=== PATIENT | female | born 1970 | race Caucasian/White ===

== ENCOUNTER 2018-12-01 11:10 | Outpatient (REF) | payer BC, SELFPAY ==
--- NOTE | 2018-12-01 09:30 | PAPFT_PTH ---
PATIENT: Maria Del Carmen Collins LOC: [facility] U#:[id number] AGE/SX: 48/F ROOM: RE12/01/[address]: Anu Nguyễn : 1970 BED: DIS: 12/01/2018 SPEC #: [id number] RECD: 12/01/18 12:57 STATUS: STEVE JAMES #: [id number] GABBIE: 12/01/18 09:[address]: Anu Nguyễn DEPT: [facility] Cytology RECD BY: Brittni Cook Tissues: 1 - CX/ENDOCX FOR PAP SMEARS Procedures: PAP THIN PREP/UVM Screening HPV DNA PROBE Comments: [id number]
[2018-12-01 19:50] LABS: TSH (W/Ref FT4) 4.14 uIU/mL (0.358-3.74)
[2018-12-01 20:59] LABS: FREE T4 1.11 ng/dL (0.76-1.46)
== END 2018-12-01 11:30 ==
LOC: NCHCN 11:10
PROVIDERS: PCP Nurse Practitioner Family; Visit Provider Nurse Practitioner Family
DX: Z00.00 Encounter for general adult medical examination without abnormal findings (principal); R94.6 Abnormal results of thyroid function studies; Z12.4 Encounter for screening for malignant neoplasm of cervix; Z11.51 Encounter for screening for human papillomavirus (HPV)
CPT/HCPCS: 88142; 84439; 84443; 87624

== ENCOUNTER 2018-12-20 10:33 | Emergency (ER) | payer BC, SELFPAY ==
--- NOTE | 2018-12-20 10:39 | NUR.NOTE ---
pt has a history of ehler-danlos type 3 pt states that she was sitting croslegged last night and when she uncrossed her legs shooting, soabing pain developed in her left leg resulting in lack of mobility pt unable to bend leg past 35degrees pt has taken 600 mg ibuprofen at 1000
[2018-12-20 10:42] VITALS: BP 111/62; PULSE 74; RESP 16; TEMP 37; O2SAT 100
--- NOTE | 2018-12-23 13:42 | ED.GENADUL_ITS ---
Discharge Plan Disposition Patient Disposition: HOME Condition: Stable Discharge Details Chief Complaint: Orthopedic Clinical Impression: Knee pain Primary Care Provider: Anu Nguyễn ED Provider: Patty Marin Home Meds and New Rx's Prescriptions: New cyclobenzaprine 10 mg tablet 10 mg PO TID PRN (Reason: muscle spasm) Qty: 9 RF: 0 Continued fluoxetine [Prozac] 20 MG capsule 20 mg PO DAILY RF: 0 ibuprofen 800 mg Tablet 800 mg PO PRN PRNRF: 0 Discharge Instructions Instructions: Cyclobenzaprine (By mouth), Knee Pain (ED) Additional Instructions: Please return immediately to the emergency department if you develop any new or worsening symptoms or if you become otherwise concerned. It is extremely important that you make an appointment to be seen by your primary care doctor soon as possible in follow-up for this visit. Referrals: Anu Nguyễn [Primary Care Provider] - Discharge Data Discharge Date/Time-TO BE ENTERED AT DEPARTURE: 12/20/18 12:32 Medical Decision Making Maria Del Carmen Collins is a 48-year-old woman with history of Katie-Danlos syndrome presenting to the emergency department complaining of left-sided knee pain after extending her knee from a crosslegged position last night. On exam patient is very well and nontoxic appearing. She has no tenderness of the knee or lower leg. Flexion is somewhat limited secondary to pain. The left leg is neurovascularly intact. I have a low suspicion for pathologic fracture or other bony abnormality at this time. I did discuss x-rays for ruling out these etiologies with the patient, who declines x-rays at this time. Unclear etiology of patient's pain. Mechanism of injury not consistent with significant acute ligamentous or meniscal injury. Exam/hx not c/w ENT, cellulitis/myositis/other infectious process, other acute emergent life/limb threatening etiology. Given chronicity and recurrence of patient complaint, suspect other soft tissue cause. Patient reports that she has knee immobilizer at home, but would like to try crutches. Plan for crutches, weightbearing as tolerated, ibuprofen/Tylenol for pain, outpatient follow-up with PCP. I had a lengthy discussion with the patient regarding return to emergency department precautions, home care, importance of outpatient follow-up. Patient verbalized understanding of the plan and is amenable. Medical Records Medical records reviewed: Yes I reviewed the patient's medical records. HPI General Mode of arrival: ambulatory . Date/Time Provider Initiated Documentation: 12/20/18 10:51 . Limitations to Documentation: no limitations . Information obtained by: patient, RN notes reviewed and old records reviewed . HPI Narrative: Maria Del Carmen Collins is a 8-year-old woman with history of Katie-Danlos syndrome and anxiety presenting to the emergency department with knee pain. Patient reports that last night she was sitting crosslegged good, and when she went on cross her leg she had sudden onset pain in her left knee radiating in to her left lower leg. Patient reports that this is happened to her many times in the past, however pain usually subsides after a few hours or overnight. Patient assumed pain would improve as it typically does, however when she woke up this morning pain still present. She reports it is somewhat better from onset. Patient reports that she has stabbing pain in the distal anterior thigh that radiates into the mid anterior lower leg. This pain is typical of her prior episodes. Patient reports that pain is worse with flexion. She reports that she has had no recent illnesses, feels otherwise in her usual state of health. No other injuries or trauma. She denies any other pain, weakness of the extremities, numbness/tingling, skin rash, nausea/vomiting/diarrhea. Related Data Home Medications Medication Instructions Recorded Confirmed fluoxetine [Prozac] 20 mg PO DAILY 08/25/13 12/20/18 cyclobenzaprine 10 mg PO TID PRN #9 tab 12/20/18 ibuprofen 800 mg PO PRN PRN 12/20/18 12/20/18 Previous Rx's Medication Instructions Recorded cyclobenzaprine 10 mg PO TID PRN #9 tab 12/20/18 Allergies Allergy/AdvReac Type Severity Reaction Status Date / Time No Known Allergies Allergy Unverified 12/20/18 10:44 General Stated Complaint: Orthopedic ABENA: 3 Review of Systems Review of Systems Constitutional: denies fevers Eyes: denies eye pain ENT: denies facial pain, dental pain, sore throat Cardiovascular: denies chest pain Respiratory: denies SOB, cough GI: denies abdominal pain, vomiting, diarrhea : denies flank pain MSK: denies back pain, neck pain, myalgias, reports left knee pain Skin: denies rash, wound Neuro: denies headaches, numbness, weakness PFSH Social History Smoking/Tobacco Use Status: Never Exam Narrative Exam Narrative: Constitutional: well and [id number], pleasant, conversing normally HENT: head atraumatic, normocephalic normal inspection, mucous membranes moist Eyes: conjunctiva normal, sclera normal, pupils 3mm b/l Neck: no stridor, normal ROM, trachea midline Resp: normal work of breathing, LCTAB Cardio: normal rate, normal rhythm, no murmur appreciated Skin: warm, dry, normal color, no rash Neuro: alert, not altered, grossly non-focal, normal tone. Normal gait. Ext: Left knee nontender to palpation posteriorly, anteriorly over patella, distal femur, proximal tibia, medial or lateral joint space. No pain with varus or valgus stress. DP pulses intact and symmetric. No tenderness in the tibia or fibula. Patient extends fully without pain, flexion limited to approximately 70-80 degrees secondary to pain. Normal sensation of the left leg. No knee effusion or skin changes. No edema of the lower leg. Psych: normal mood, normal affect, normal behavior Course Vital Signs Temperature 37 C 12/20/18 10:42 Pulse 74 12/20/18 10:42 Respiratory Rate 16 12/20/18 10:42 Blood Pressure 111/62 12/20/18 10:42 Pulse Oximetry 100 12/20/18 10:42 Temperature 37 C 12/20/18 10:42 Temperature Source Skin 12/20/18 10:42 Pulse 74 12/20/18 10:42 Respiratory Rate 16 12/20/18 10:42 Respiratory Effort 12/20/18 10:45 Blood Pressure 111/62 12/20/18 10:42 Blood Pressure Position Sitting 12/20/18 10:42 Pulse Oximetry 100 12/20/18 10:42 Oxygen Delivery Method Room Air 12/20/18 10:42 Oxygen Flow Rate 0 12/20/18 10:42 Pain Level 7 12/20/18 10:42 Comment 12/20/18 10:42
== END 2018-12-20 12:32 | disposition home or self-care (01) ==
PROVIDERS: Emergency Provider Student in an Organized Health Care Education/Training Program; PCP Nurse Practitioner Family
DX: M25.562 Pain in left knee (principal); Q79.6 Ehlers-Danlos syndromes
CPT/HCPCS: 99283; E0114

== ENCOUNTER 2019-07-26 18:36 | Emergency (ER) | payer BC, SELFPAY ==
[2019-07-26 18:45] VITALS: BP 152/88; PULSE 77; RESP 16; TEMP 36.4; O2SAT 99
--- NOTE | 2019-07-26 19:43 | ED.GENADUL_ITS ---
Discharge Plan Disposition Patient Disposition: HOME Condition: Improving Discharge Details Chief Complaint: Nk/Back Pain Clinical Impression: Acute torticollis Primary Care Provider: Anu Nguyễn ED Provider: Felisa Manzo Home Meds and New Rx's Prescriptions: New cyclobenzaprine 10 mg tablet 10 mg PO TID PRN (Reason: spasm) Qty: 14 RF: 0 Continued ibuprofen 800 mg Tablet 800 mg PO PRN PRNRF: 0 Discharge Instructions Instructions: Spasmodic Torticollis (ED) Additional Instructions: Ice or heat to the neck for discomfort. Use soft collar for comfort. Use muscle relaxant as prescribed. Do not drive, drink, work while taking this medication. Rest activities as tolerated. Next and follow-up promptly with your primary care doctor if not improving the next 2 to 3 days Return for any worsening or concerns sooner if needed Medical Decision Making Patient presents with complaints of left neck pain. Patient awoke with pain for the last 3 to 4 days. Patient reports the left side of the neck is moderately painful. Patient presents in a position of torticollis however on exam has obvious swelling and fullness to the left lateral aspect of the neck below the angle of the jaw. Will CT scan to identify etiology of swelling. Patient offered offer med and Toradol for pain relief as she is obviously uncomfortable. Patient did take ibuprofen early in the day but has not had any recent NSAID in the last 8 hours. Patient is not clinically ill appearing has no complaints of fevers or chills. No other concerns or complaints. Denies headache. No radiation of pain into the left arm. Patient's CAT scan ultimately unremarkable for any acute abnormality. We will provide benzo for muscle spasm and a soft collar. Patient reports her understanding. Conservative treatments discussed. Encouraged follow-up with primary care doctor if not improving. HPI General Date/Time Provider Initiated Documentation: 07/26/19 18:42 . HPI Narrative: Patient presents for complaints of left-sided neck pain. Patient reports she awoke 4 days ago with left-sided neck discomfort. Patient reports pain with range of motion of her neck. Patient reports mild pain radiating from the lateral side of her neck down to her shoulder. No pain radiating into the arm. Patient reports pain with rotation. Patient also reports pain with raising left arm. Patient denies fever, chills, nausea, vomiting. No ill feeling. Denies headache or dizziness. Patient reports he has had neck spasm in the past but typically will resolve within a few days. Patient reports this does seem similar but is longer lasting. Patient denies difficulty swallowing or eating. No chest pain, difficulty breathing or shortness of breath. No other concerns or complaints. Patient does report mild fullness to the left side of her neck. Related Data Home Medications Medication Instructions Recorded Confirmed ibuprofen 800 mg PO PRN PRN 12/20/18 07/26/19 cyclobenzaprine 10 mg PO TID PRN #14 tab 07/26/19 Previous Rx's Medication Instructions Recorded cyclobenzaprine 10 mg PO TID PRN #14 tab 07/26/19 Allergies Allergy/AdvReac Type Severity Reaction Status Date / Time No Known Allergies Allergy Unverified 07/26/19 18:48 General Stated Complaint: Nk/Back Pain ABENA: 4 Review of Systems Review of Systems CONSTITUTIONAL: The patient denies fevers, chills. EYES: Denies vision changes, blurry vision, or eye pain. ENT: Denies hearing changes, tinnitus, vertigo, sore throat. CARDIAC: Denies chest pain, SOB. RESPIRATORY: Denies cough, sputum. Denies difficulty breathing. GASTROINTESTINAL: Denies abdominal pain, changes in bowel, vomiting or nausea. GENITOURINARY: Denies dysuria, or frequency of urination. MUSCULOSKELETAL: Denies Joint pain, gait changes. NEUROLOGIC: Denies headaches, Denies focal weakness. Denies numbness. INTEGUMENT: Denies rashes. PSYCHIATRIC: Denies behavior changes. Denies anxiety or depression. ENDOCRINOLOGY: Denies fatigue. PSYCHIATRY: Denies depression, agitation or anxiety [facility] Social History Smoking/Tobacco Use Status: Never Drug use: Never Do you feel safe in your relationship?: Yes Exam Narrative Exam Narrative: CONST: Healthy appearing patient, in no acute distress. Well hydrated. Alert and alert. HENMT: Head nomocephalic, normal to inspection. Atraumatic. Hearing grossly normal. EYES: General normal appearance. Alignment normal. Eyelids normal. Conjunctiva normal. NECK: Normal visual inspection. Trachea midline. No Midline tenderness. Patient's position of comfort is tilted toward the right. Patient with pain with rotational range of motion. Patient with fullness and swelling noted to the left lateral neck below the angle of the jaw. Patient also has muscular tenderness through the lateral aspect of the neck. No skin change. CHEST: Normal insepection of the chest. RESP: Normal respiratory effort. Speaking full sentences. No cough. No audible wheezing. No retractions. CARDIO: No JVD. MUSCULOSKELETAL: Normal Gait. FROM of all extremities. SKIN: Normal. Dry. No rashes. NEURO: Alert and awake. Speech clear. PSYCH: Normal affect. Cooperative. Course Vital Signs Temperature 36.4 C L 07/26/19 18:45 Pulse 77 07/26/19 18:45 Respiratory Rate 16 07/26/19 18:45 Blood Pressure 152/88 H 07/26/19 18:45 Pulse Oximetry 99 07/26/19 18:45 Temperature 36.4 C L 07/26/19 18:45 Temperature Source Skin 07/26/19 18:45 Pulse 77 07/26/19 18:45 Respiratory Rate 16 07/26/19 18:45 Respiratory Effort Non-Labored 07/26/19 18:45 Blood Pressure 152/88 H 07/26/19 18:45 Blood Pressure Position Sitting 07/26/19 18:45 Pulse Oximetry 99 07/26/19 18:45 Oxygen Delivery Method Room Air 07/26/19 18:45 Oxygen Flow Rate 0 07/26/19 18:45 Pain Level 4 07/26/19 18:45
[2019-07-26 20:47] LABS: Abs Immature Grans 0.02 k/cumm (0.0-0.09); Absolute Basophil Count 0.03 k/cumm (0.0-0.2); Absolute Eosinophil Count 0.24 k/cumm (0.0-0.7); Absolute Lymphocyte Count 3.68 k/cumm (1.2-3.4); Absolute Monocyte Count 0.74 k/cumm (0.11-0.7); Absolute Neutrophil Count 4.96 k/cumm (1.2-6.7); Basophils % 0.3; Eosinophils % 2.5; HGB 14.3 g/dL (12.0-15.5); Immature Grans % 0.2; Lymphocytes % 38.1; Mean Corpuscular Hemoglobin 29.7 pg (27.0-33.0); Mean Corpuscular Volume 87.3 fL (80-95); Mean Platelet Volume 10.1 fL (8.0-11.0); Monocytes % 7.7; Neutrophils % 51.2; Platelet Count 313 x1000/uL (130-400); RBC 4.81 m/cumm (4.00-5.20); RBC Distribution Width 12.8 % (11.7-14.6); White Blood Cell Count 9.67 k/cumm (4.4-10.8)
[2019-07-26 21:00] LABS: ALT 27 U/L (14-59); AST 15 U/L (15-37); Alkaline Phosphatase 85 U/L (46-116); Anion Gap 8.5 mmol/L (3-11); BUN 15 mg/dL (7-18); Bilirubin, Total 0.3 mg/dL (0.2-1.0); CO2 28.5 mmol/L (21.0-32.0); CREATININE 0.98 mg/dL (0.55-1.02); Calcium 9.2 mg/dL (8.5-10.1); Chloride 105 mmol/L (98-107); Glucose 109 mg/dL (70-100); Potassium 3.7 mmol/L (3.5-5.1); Sodium 142 mmol/L (136-145); Total Protein 7.9 g/dL (6.4-8.2)
[2019-07-26] MEDS: Ketorolac 15 MG/ML VIAL IVP (21:22)
[2019-07-26] MEDS: Omnipaque 350 MG/ML 100 ML BTL IJ (21:22)
[2019-07-26] MEDS: Acetaminophen 500 MG TAB 1000 MG PO (21:22)
--- NOTE | 2019-07-26 21:22 | DI.CT_ITS ---
SYMPTOM/DIAGNOSIS: NECK SWELLING, LEFT LATERAL, IDENTIFY CT SOFT TISSUE NECK: 07/[address]: CT examination of the cervicothoracic junction was performed using intravenous infusion of 100 cc's of Omnipaque 350. The trachea and esophagus are normal in appearance. The vascular structures of the neck and superior mediastinum appear intact. The thyroid appears normal. There is no evidence of a supraclavicular or substernal mass. The lung apices appear normal. The clavicles and visualized portions of the shoulder girdle appear normal bilaterally. CONCLUSION: Normal CT examination of the cervical region.
[2019-07-26] MEDS: Normal Saline 1,000 ML 1000 ML IV (21:23)
[2019-07-26] MEDS: Normal Saline Flush 10 ML SYR IVP (21:23)
--- NOTE | 2019-07-26 21:38 | DI.VRAD_ITS ---
EXAM: CT Neck With Contrast EXAM DATE/TIME: 07/26/2019 7:42 PM CLINICAL HISTORY: 49 years old, female; Mass, lump, or swelling in neck; Patient HX: Left sided neck pain with movement and swelling TECHNIQUE: Imaging protocol: Computed tomography images of the neck with intravenous contrast. Radiation optimization: All CT scans at this facility use at least one of these dose optimization techniques: automated exposure control; mA and/or kV adjustment per patient size (includes targeted exams where dose is matched to clinical indication); or iterative reconstruction. Contrast material: OMNIPAQUE 350; Contrast volume: 100 ml; Contrast route: IOV; COMPARISON: No relevant prior studies available. FINDINGS: Nasopharynx: Unremarkable. Oropharynx: Unremarkable. No significant tonsillar enlargement. Hypopharynx: Unremarkable Larynx: Unremarkable. Normal epiglottis. Retropharyngeal space: Unremarkable. Submandibular/Parotid glands: Normal. Glands are normal in size. Thyroid: Normal. No enlarged or calcified nodules. Lymph nodes: Unremarkable. No lymphadenopathy. Trachea: Visualized trachea is unremarkable. Lungs: Unremarkable as visualized. Bones/joints: Unremarkable. No acute fracture. Soft tissues: Unremarkable. No significant soft tissue swelling. IMPRESSION: No acute findings. Dictated and Authenticated by: Nghia Campos MD. Ordering:AMADOR Roberto MD
[2019-07-26] MEDS: Cyclobenzaprine 10 MG TAB (22:12)
== END 2019-07-26 22:25 | disposition home or self-care (01) ==
PROVIDERS: Emergency Provider Physician Assistant; PCP Nurse Practitioner Family
DX: M43.6 Torticollis (principal)
CPT/HCPCS: 36415; 70491; 80053; 96361; 96374; 99285; 85025; 99284; J1885; J3490; L0120

== ENCOUNTER 2019-12-03 10:32 | Outpatient (REF) | payer BC, SELFPAY ==
--- NOTE | 2019-12-02 09:45 | PAPFT_PTH ---
PATIENT: Maria Del Carmen Collins LOC: [facility] U#:[id number] AGE/SX: 49/F ROOM: RE12/03/[address]: Anu Nguyễn : 1970 BED: DIS: 12/03/2019 SPEC #: [id number] RECD: 12/03/19 13:01 STATUS: STEVE JAMES #: [id number] GABBIE: 12/02/19 09:[address]: Anu Nguyễn DEPT: [facility] Cytology RECD BY: Brittni Cook Tissues: 1 - CX/ENDOCX FOR PAP SMEARS Procedures: PAP THIN PREP/UVM Screening HPV DNA PROBE Comments: [id number]
[2019-12-03 18:33] LABS: TSH (W/Ref FT4) 2.87 uIU/mL (0.36-3.74)
== END 2019-12-03 10:52 ==
LOC: NCHCN 10:32
PROVIDERS: PCP Nurse Practitioner Family; Visit Provider Nurse Practitioner Family
DX: Z00.00 Encounter for general adult medical examination without abnormal findings (principal); R94.6 Abnormal results of thyroid function studies; Z12.4 Encounter for screening for malignant neoplasm of cervix; Z11.51 Encounter for screening for human papillomavirus (HPV)
CPT/HCPCS: 88142; 84443; 87624

== ENCOUNTER 2020-03-14 12:14 | Outpatient (REF) | payer BC, SELFPAY ==
[2020-03-16 09:10] LABS: COVID-19 RT-PCR UVMMC Result Negative (Negative)
== END 2020-03-14 12:34 ==
LOC: NCHCN 12:14
PROVIDERS: PCP Nurse Practitioner Family; Visit Provider Nurse Practitioner Family
DX: Z11.59 Encounter for screening for other viral diseases (principal)
CPT/HCPCS: U0003

== ENCOUNTER 2020-07-18 07:41 | Outpatient (CLI) | payer BC, SELFPAY ==
[2020-07-21 12:35] LABS: Patient Race White; SARS-CoV-2 Specimen Source Nasopharynx
[2020-07-21 12:36] LABS: Method Summary See Comments; SARS-CoV-2 RNA Undetected (Undetected)
== END 2020-07-18 08:01 ==
PROVIDERS: PCP Nurse Practitioner Family; Visit Provider Nurse Practitioner Family
DX: Z20.828 Contact with and (suspected) exposure to other viral communicable diseases (principal)
CPT/HCPCS: U0003

== ENCOUNTER 2021-02-01 01:04 | Outpatient (CLI) | payer BC, SELFPAY ==
--- NOTE | 2021-02-01 | DI.DEXA_ITS ---
EXAM: XR DEXA BONE DENSITY W/WO RITA CLINICAL HISTORY: OSTEOPOROSIS, M81.0 TECHNIQUE: Routine DEXA evaluation of the lumbar spine, hip, or forearm. COMPARISON: Prior study July 2014 FINDINGS: Performed on a [employer] unit. Lateral image: No compression fracture evident. Lumbar Spine total T-score: 1.8. This is identical to the T-score of 2014. Hip total T-score:0.8. Prior 2013 reading was -3.4. T-score reading today at level of femoral neck is 1.1 Forearm total T-score: 0.8 IMPRESSION: Bone mineral density measures in the normal range. Fracture risk is low. Note: Any spine fracture indicates 5x risk for subsequent spine fracture and 2x risk for subsequent h ip fracture. World Health Organization criteria for BMD interpretation classify patients: Normal...... T- Score at or above -1.0 Osteopenic... T- Score between -1.0 and -2.5 Osteoporosis... T-Score at or below -2.5
== END 2021-02-01 01:24 ==
PROVIDERS: PCP Nurse Practitioner Family; Visit Provider Nurse Practitioner Family
DX: M81.0 Age-related osteoporosis without current pathological fracture (principal); M85.89 Other specified disorders of bone density and structure, multiple sites
CPT/HCPCS: 77080

== ENCOUNTER 2021-12-05 01:02 | Outpatient (CLI) | payer BC, SELFPAY ==
--- NOTE | 2021-12-05 12:43 | DI.MAMMO_ITS ---
Exam(s) MAMMO SCREENING EXAM: MAMMO SCREENING CLINICAL HISTORY: SCREENING FOR BREAST CANCER Z12.39. TECHNIQUE: Bilateral full field digital CC and MLO mammographic images were obtained with 3D tomosyn thesis and utilizing computer aided detection (CAD). COMPARISON: None. This is a baseline mammogram on this 51-year-old patient. FINDINGS: There are no significant radiographic findings in the right breast. In the left breast there is an asymmetric density located inferomedially, approximately 7 cm in from the nipple. Spot compression views recommended. No malignant-appearing microcalcification groups is region or elsewhere in either breast There is no significant architectural distortion nor skin thickening-retraction. IMPRESSION: 1. No radiographic evidence of malignancy in the right breast. 2. Asymmetric density-possible nodule medially in the left breast, as described above. Spot dick elham views and ultrasound recommended.. BI-RADS Category 0 - Assessment Incomplete: Need additional imaging evaluation Breast Density - Category B - Scattered areas of fibroglandular density Breast density Category C or D implies that the patient has dense breast tissue. Dense breast tissue can make it harder to find cancer on a mammogram. Dense breast tissue is also associated with an incr eased risk of breast cancer. This information about the result of the mammogram report was provided to the patient to raise their awareness. Use this report when you speak with the patient about their risks for breast cancer, which includes their family history. At that time, you may recommend additional screening tests (Ultrasoun d or MRI) as these tests may add significant information. A negative radiographic report should not delay biopsy if a dominant or clinically suspicious mass is present. Up to ten percent of cancers are not identified on mammography. A negative report may reinforce clinical impression. Adenosis and dense breasts may obscure an underlying neoplasm. False positive reports average 6 to 10%. Patient will receive a letter notifying them of these results.
== END 2021-12-05 01:22 ==
PROVIDERS: PCP Nurse Practitioner Family; Visit Provider Nurse Practitioner Family
DX: Z12.31 Encounter for screening mammogram for malignant neoplasm of breast (principal); R92.8 Other abnormal and inconclusive findings on diagnostic imaging of breast
CPT/HCPCS: 77063; 77067

== ENCOUNTER 2021-12-08 14:46 | Outpatient (REF) | payer BC, SELFPAY ==
[2021-12-08 15:41] LABS: HCT 44.1 % (36.0-46.0); HGB 14.1 g/dL (11.2-15.7); MCH 29.3 pg (27.0-33.0); MCV 91.7 fL (80-95); Platelet Count 274 10^3/uL (130-400); RBC 4.81 10^6/uL (3.93-5.22); RDW 12.4 % (11.7-14.6); WBC 5.65 10^3/uL (4.4-10.8)
[2021-12-08 16:26] LABS: Anion Gap 10.4 mmol/L (3-11); BUN 28 mg/dL (7-18); CO2 26.6 mmol/L (21.0-32.0); CREATININE 0.8 mg/dL (0.55-1.02); Calcium 9.3 mg/dL (8.5-10.1); Calculated LDL 133 mg/dL (<100); Chloride 106 mmol/L (98-107); Cholesterol 199 mg/dL (<200); Glucose 96 mg/dL (74-106); HDL Cholesterol 55 mg/dL (40-60); Potassium 4.1 mmol/L (3.5-5.1); Sodium 143 mmol/L (136-145); TSH (W/Ref FT4) 3.69 uIU/mL (0.36-3.74); Triglyceride 57 mg/dL (<150)
== END 2021-12-08 14:47 | disposition home or self-care (01) ==
LOC: NCHCN 14:46
PROVIDERS: PCP Nurse Practitioner Family; Visit Provider Nurse Practitioner Family
DX: R94.6 Abnormal results of thyroid function studies (principal); Z00.00 Encounter for general adult medical examination without abnormal findings
CPT/HCPCS: 80048; 80061; 85027; 84443

== ENCOUNTER 2021-12-15 02:02 | Outpatient (CLI) | payer BC, SELFPAY ==
--- NOTE | 2021-12-15 | DI.US_ITS ---
Exam(s) MG MAMMO SCREEN CALL BACK UNI US BREAST LT LIMITED EXAM: MG MAMMO SCREEN CALL BACK UNI and U/S breast LT limited CLINICAL HISTORY: ASYMMETRIC DENSITY LT BREAST. TECHNIQUE: Craniocaudal and mediolateral oblique Full Field Digital Mammography views of the left br east with Computer Aided Diagnosis followed by Tomosynthesis and left breast ultrasound. COMPARISON: Priors available for comparison. FINDINGS: Mammography/Tomosynthesis: Masses/Architectural Distortion: None seen. Microcalcifictions: No suspicious pleomorphic-type are seen. Skin Thickening/Nipple Retraction: None. Left breast US: Echotexture: Normal appearance of the glandular tissue. Shadowing: No suspicious foci. Cyst: None. Solid lesions: None seen. Ductal dilation: None. IMPRESSION: 1. No evidence of malignancy is noted. 2. A six-month follow-up left mammogram is recommended for re-evaluation. 3. The findings were discussed with the patient on the date of the examination. BI-RADS Category 3 - 6 month - Probably Benign Finding: Recommend follow-up imaging in 6 months Breast Density - Category B - Scattered areas of fibroglandular density Breast density Category C or D implies that the patient has dense breast tissue. Dense breast tissue can make it harder to find cancer on a mammogram. Dense breast tissue is also associated with an incr eased risk of breast cancer. This information about the result of the mammogram report was provided to the patient to raise their awareness. Use this report when you speak with the patient about their risks for breast cancer, which includes their family history. At that time, you may recommend additional screening tests (Ultrasoun d or MRI) as these tests may add significant information. A negative radiographic report should not delay biopsy if a dominant or clinically suspicious mass is present. Up to ten percent of cancers are not identified on mammography. A negative report may reinforce clinical impression. Adenosis and dense breasts may obscure an underlying neoplasm. False positive reports average 6 to 10%. Patient will receive a letter notifying them of these results.
== END 2021-12-15 02:22 ==
PROVIDERS: PCP Nurse Practitioner Family; Visit Provider Nurse Practitioner Family
DX: Z12.31 Encounter for screening mammogram for malignant neoplasm of breast (principal); R92.8 Other abnormal and inconclusive findings on diagnostic imaging of breast; N64.59 Other signs and symptoms in breast
CPT/HCPCS: 76642; 77063; 77067

== ENCOUNTER → 2022-06-14 02:31 | Outpatient (CLI) | payer BC, SELFPAY ==
--- NOTE | 2022-06-14 09:34 | DI.MAMMO_ITS ---
Exam(s) MG MAMMO DIAGNOSTIC UNI EXAM: MAMMO DIAGNOSTIC UNI CLINICAL HISTORY: HX OF DUSTY MAMMO, Z87.898. TECHNIQUE: Craniocaudal and mediolateral oblique Full Field Digital Mammography views of the left br east with Computer Aided Diagnosis followed by Tomosynthesis. COMPARISON: Comparison is made with prior examinations. FINDINGS: Mammography/Tomosynthesis: Masses/Architectural Distortion: None seen. Microcalcifictions: No suspicious pleomorphic-type are seen. Skin Thickening/Nipple Retraction: None. IMPRESSION: 1. No evidence of malignancy is noted. 2. Unless there is more urgent need, follow-up screening mammography is recommended, as per [place] [employer] guidelines. 3. The findings were discussed with the patient on the date of the examination. BI-RADS Category 1 - Negative Breast Density - Category B - Scattered areas of fibroglandular density Breast density Category C or D implies that the patient has dense breast tissue. Dense breast tissue can make it harder to find cancer on a mammogram. Dense breast tissue is also associated with an incr eased risk of breast cancer. This information about the result of the mammogram report was provided to the patient to raise their awareness. Use this report when you speak with the patient about their risks for breast cancer, which includes their family history. At that time, you may recommend additional screening tests (Ultrasoun d or MRI) as these tests may add significant information. A negative radiographic report should not delay biopsy if a dominant or clinically suspicious mass is present. Up to ten percent of cancers are not identified on mammography. A negative report may reinforce clinical impression. Adenosis and dense breasts may obscure an underlying neoplasm. False positive reports average 6 to 10%. Patient will receive a letter notifying them of these results.
== END ==
PROVIDERS: PCP Nurse Practitioner Family; Visit Provider Nurse Practitioner Family
DX: Z87.898 Personal history of other specified conditions (principal)
CPT/HCPCS: 77061; 77065; G0279

== ENCOUNTER 2022-06-19 12:45 | Day surgery (SDC) | payer BC, SELFPAY ==
--- NOTE | 2022-06-18 22:20 | HPE_ITS ---
Assessment and Plan Assessment and plan (1) Screening for colon cancer: Status: Acute Assessment and plan: see HPI (2) Anxiety: (3) Arthralgia: (4) Katie-Danlos disease: (5) Elevated TSH: (6) Female stress incontinence: History of Present Illness Narrative: Patient is here today for colon cancer screening. She did complete prep. The resulting effluent is a clear yellow color. She is not having any abdominal pain or nausea currently. She currently has no chest pain or chest discomfort, nausea, shortness of breath, productive cough of, fever or chills. She has had no changes in her medications or health status since she saw Evonne in the office. We discussed what she could expect during the procedure post procedurally recovery time and risks including but not limited to: Bleeding, infection, perforation, complications from the anesthesia. All questions are answered and patient is stable for the proposed procedure. Consult 05/03: 2 y/o female with history of Katie-Danlos disease, hypermobility and anxiety presents for her first colonoscopy screening pre-op. She denies a family history of colon cancer. She denies any changes in bowel habits including bloody or black tarry stools, abdominal pain, diarrhea or constipation. She denies constitutional symptoms. Denies use of any other recreational or illegal drugs. She denies chest pain, palpitations, dyspnea or dyspnea with exertion.? She describes being physically active walking frequently and participates in physical therapy once a week.? She denies prior history or family history of adverse reactions or complications with anesthesia. The patient denies any history of stroke, SC, seizures, bleeding or clotting disorders. She denies having any implanted metal in her body. Review of Systems All systems reviewed & are unremarkable except as noted in HPI and below PFSH All Active Problems Screening for colon cancer (Acute) Medical History Anxiety Arthralgia BMI 34.0-34.9,adult Depression Katie-Danlos disease Elevated TSH Female stress incontinence Osteoporosis Pes planus Surgical History (Updated 06/19/22 @ 13:11 by Ashli Hernandez RN) Hx of adenoidectomy Social History Smoking/Tobacco Use Status: Never Smoking risk assessment performed?: Yes Alcohol Intake: current Alcohol Intake frequency: a few times a month Drug use: Rarely Substance use type: marijuana Do you feel safe at home: Yes Do you feel safe in your relationship?: Yes Meds Allergies and Home Medications Allergies Allergy/AdvReac Type Severity Reaction Status Date / Time No Known Allergies Allergy Unverified 06/19/22 13:11 Home Medications Medication Instructions Recorded Confirmed Type ibuprofen 800 mg tablet 800 mg PO PRN PRN 12/20/18 06/19/22 History fluoxetine 10 mg capsule 10 mg PO DAILY 09/14/21 06/19/22 History Exam Narrative Exam Narrative: PHYSICAL EXAM GENERAL APPEARANCE: Alert, healthy appearance, oriented, in no acute distress SKIN: No rashes.? No breakdown HYDRATION: Well hydrated HEAD, EYES, EARS, NECK, THROAT: Head is normocephalic, pupils equal, round, reactive to light and accommodation, ocular movement intact, sclera clear and no jaundice. ?Dentition intact. No sore throat.? No jaw pain. No thrush NECK: Supple, Trachea midline. No JVD. LUNGS: normal respiration/nl chest excursion. ?Clear to auscultation B/l no R /R/W ?HEART: Regular rate and rhythm, EXTREMITY: No edema or cyanosis? no leg pain, redness, swelling.? No IV infiltration ABDOMEN: non tender to palpation, no masses or distention, no hernias. Normal bowel sounds NEURO: no focal neuro deficits.
--- NOTE | 2022-06-18 22:24 | W.COLOREPORT ---
Colonoscopy Report Date of procedure: 06/19/22 Pre-op diagnosis general: CRC screen Post-op diagnosis procedure note: other (Diverticula and polyps) Surgeon: Bertha Santiago Anesthesia Type: General:No Airway Disposition: PACU Prep: Miralax/Dulcolax Retraction Time: 11 Procedure Description: After informed consent was obtained the patient was taken to the procedure room and placed in a left decubitous position. Monitors were applied and a time out was done. The patients name, date of , procedure, allergies to medications and metal in their body was reviewed. The patient was then sedated. Once sedated and comfortable a rectal exam was done. External exam was normal. Internal exam revealed a normal sphincter tone and no palpable masses. The scope was then introduced and retrofelexed. No internal hemorrhoids were identified. The scope was then advanced to the cecum without difficulty. The TI and appendiceal orifice were identified. The prep was BB PS 3 in all segments for total of 9. The scope was then slowly retracted over 11 minutes back into the rectum. She has few scattered [place] diverticula throughout the entirety of the colon. They are not very numerous. There are no signs of active bleeding or infection. Mucosa is pink and healthy. She has a 5 mm flat polyp in the rectum. This is removed with a cold biting forcep. All specimen is retrieved and no bleeding is noted. the scope was removed and the patient was woken up and taken back to Same day surgery in stable condition. The patient tolerated the procedure well and there were no immediate complications. Follow up: The patient should follow up in 7 years unless they develop changes in bowel habits or other new gastrointestinal complaints. Patient was given information on diverticula and the importance of dietary fiber. She does experience some problems with constipation and irregularity. I did encourage her to start fiber supplements such as Metamucil. If she has any further questions or concerns she can follow-up in the office.
--- NOTE | 2022-06-18 22:26 | PDOC.DSDIS_ITS ---
Discharge Plan Disposition Patient Disposition: HOME Condition: Good Discharge Details Reason For Visit: colon scope Attending Provider: Bertha Santiago Primary Care Provider: Anu Nguyễn Home Meds and New Rx's Prescriptions: Continued fluoxetine 10 mg capsule 10 mg PO DAILY ibuprofen 800 mg Tablet 800 mg PO PRN PRN Discontinued bisacodyl [Dulcolax (bisacodyl)] 5 mg tablet,delayed release (DR/EC) 5 mg PO ONCE Qty: 4 0RF Rx Instructions: Take according to provider's instructions for colonoscopy prep. polyethylene glycol 3350 17 gram/dose powder 17 g PO ONCE Qty: 238 0RF Rx Instructions: To be taken as directed by prescriber's office for colonoscopy prep. Discharge Instructions Additional Instructions: DSU Colonoscopy Post- Op Instructions Instructions for Everyone who is given Anesthesia: For your safety, please do the following for the next twenty-four (24) hours: *Do Not operate a motor vehicle (car, truck, motorcycle, etc.) *Do Not drink alcoholic beverages or use any recreational drugs for the first 24 hours or while taking pain medications. The medications in your body may have a reaction that can be dangerous. *Do Not make any important decisions or sign any important papers. Findings: Diverticula- through out entire colon, minor Polyps x1 small Follow up: My office will send a letter in 2-3 wks detailing as to what type of polyp it was and when you should repeat your colonoscopy. 1. No lifting over 20 pounds or strenuous activity for the first 24 hours after your procedure. After 24 hours there are no restrictions on your activity but you may feel fatigued for a few days. 2. After you arrive home you may have a light meal and return to your normal diet as you can tolerate it without feeling sick to your stomach. 3. You may have a bloated, gaseous feeling in your belly (abdomen) after a colonoscopy. Passing gas and belching will help. Walking or lying down on your left side with your knees flexed may relieve the discomfort. Call the office at [phone] (Office) or [phone] (Hospital) right away if you notice any of the following: a.Vomiting of blood or ?coffee ground stools?. b.Rectal bleeding 1Tbsp, blood clots or continuous bleeding. c.Severe belly (abdominal) pain. d.A hard distended belly (abdomen) and an inability to pass gas. 4. Please don?t expect to have a normal BM (bowel movement) for 2-3 days after your procedure. 5. If there are questions regarding the findings of your procedure, please contact your doctor 6. If you are unable to contact your doctor with a problem, contact the hospital at [phone]. 7. Continue all your regular medications unless directed otherwise. I understand the above instructions and have no questions. Signature of Patient or Adult Escort Name of Responsible Adult Escort Signature of Nurse Date/Time Activity:: see above Diet:: see above Discharge Orders Discharge Orders: Discharge Order (Routine); Ordered 06/18/22 Ordered By: Bertha Santiago DS: Diagnosis Discharge Diagnosis (1) Screening for colon cancer: Status: Acute (2) Anxiety: (3) Arthralgia: (4) Katie-Danlos disease: (5) Elevated TSH: (6) Female stress incontinence: (7) Diverticula of colon: Status: Acute (8) Colon polyp: Status: Acute
[2022-06-19 13:13] VITALS: BP 145/96; PULSE 77; RESP 16; TEMP 36.2; O2SAT 98
--- NOTE | 2022-06-19 13:30 | W.ANESPRE ---
General Info Date of Service Date Performed: 06/19/22 Height: 5 ft 3 in Weight: 98.5 kg Body Mass Index (BMI): 38.5 Surgical Procedure: Operation Date: 06/19/22 14:20 Proposed Procedure Side Surgeon yudith Santiago, Meds Allergies and Home Medications Allergies Allergy/AdvReac Type Severity Reaction Status Date / Time No Known Allergies Allergy Unverified 06/19/22 13:11 Home Medication Medication Instructions Recorded ibuprofen 800 mg tablet 800 mg PO PRN PRN 12/20/18 fluoxetine 10 mg capsule 10 mg PO DAILY 09/14/21 Current Visit Medications: Current Medications Generic Name Dose Route Start Last Admin Trade Name Freq PRN Reason Stop Dose Admin Hyoscyamine Sulfate 0.125 mg 06/18/22 22:28 Hyoscyamine 0.125 Mg Sl/Oral/Chew SL DIRECTED PRN Ringer's Solution 1,000 mls @ 80 mls/hr 06/19/22 06:00 IV 07/18/22 23:59 INFUSION ZACK IV Miscellaneous Supplies 1 each 06/19/22 06:00 Iv Access IV 07/18/22 23:59 DIRECTED ZACK Ondansetron HCl 4 mg 06/18/22 22:28 Ondansetron 4 Mg/2 Ml Vial IVP Q4H PRN PRN Nausea / Vomiting Sodium Chloride 0 ml 06/19/22 06:00 Normal Saline Flush 10 Ml Syr IV 07/18/22 23:59 PRN PRN Sodium Chloride 0 ml 06/19/22 06:00 Normal Saline 10 Ml Vial IJ 07/18/22 23:59 DIRECTED PRN Sterile Water 0 ml 06/19/22 06:00 Water,Injection,Sterile 10 Ml Vial IJ 07/18/22 23:59 DIRECTED PRN PFSH Active Problems Active Problems: Problem Status Onset Code Screening for colon cancer Z12.11 Medical History Medical History Anxiety Arthralgia BMI 34.0-34.9,adult Depression Katie-Danlos disease Elevated TSH Female stress incontinence Osteoporosis Pes planus Surgical History Surgical History (Updated 06/19/22 @ 13:11 by Ashli Hernandez, JES) Hx of adenoidectomy Tobacco Smoking/Tobacco Use Status: Never Alcohol Alcohol Intake: current Alcohol intake frequency: a few times a month Substance Use Substance use: Rarely Substance use type: marijuana Vital Signs and Lab Results Vital Signs Most Recent Vital Signs in EMR: Most Recent Vital Signs Temp Pulse Resp BP Pulse Ox 36.2 C L 77 16 145/96 H 98 06/19/22 13:13 06/19/22 13:13 06/19/22 13:13 06/19/22 13:13 06/19/22 13:13 Point of Care Results Point of Care Results: POC- Test(urine) Negative 06/19/22 13:29 Lab Results Blood Type / Crossmatch: No Data to Display Complete Blood Count: No Data to Display Complete Metabolic Panel: No Data to Display Liver Function Panel: No Data to Display Coagulation Panel: No Data to Display Cardiac Panel: No Data to Display Arterial Blood Gas: No Data to Display Venous Blood Gas: No Data to Display Pancreas Panel: No Data to Display Thyroid Panel: No Data to Display Infectious Disease: No Data to Display Blood Cultures: No Data to Display Toxicology Panel: No Data to Display Panel: No Data to Display Imaging and Studies Imaging and Studies Study information below may be from another EMR and interpreted by another provider. Please see original notes in EMR for more complete details. Echocardiogram Summary: SUMMARY: Normal cardiac anatomy and function Anesthesia Assessment and Plan Anesthesia History Personal History: No History of Anesthesia Complications Family History: No Family History of Anesthesia Complications Exercise Tolerance Exercise Tolerance: Metabolic Equivalents>4 Pertinent Negatives Pertinent Negatives: No Symptoms of GERD, No Major Cardiovascular Symptoms or Complaints, No Major Pulmonary Symptoms or Complaints and No History of CVA/TIA Cardiac & Pulmonary Exam Cardiac Exam: Normal S1/S2 Heart Sounds Pulmonary Exam: Clear Bilateral Breath Sounds Implantable Cardiac Device Does patient have a Pacemaker or an ICD?: No Airway Exam Known Difficult Airway: No Mallampati Class: 3 Mouth Opening: Normal (> 3cm) Thyromental Distance: Greater than 3 cm Neck Range of Motion: Full ROM Neck Circumference: Normal Teeth Condition: Normal Dentition ASA Classification ASA Score: ASA 2 Emergency Case?: No NPO Status NPO Status: NPO Clears >2 hours, Solids >8 hours and NPO Small Non-Fatty Meal >6 hours Status Status: Not Per Patient Anesthesia Plan Resuscitation Status: Full Code Anesthesia Technique: General Anesthesia Airway Planned: Natural Airway Monitors Used: Standard Monitors
[2022-06-19 13:33] VITALS: BMI 38.5
[2022-06-19] MEDS: Lactated Ringers 1,000 ML 80 ML IV (13:53)
--- NOTE | 2022-06-19 14:58 | BOWEL_PTH ---
PATIENT: Maria Del Carmen Collins LOC: [facility] U#:[id number] AGE/SX: 52/F ROOM: RE06/19/[address]: Bertha Santiago : 1970 BED: DIS: 06/19/2022 SPEC #: [id number] RECD: 06/19/22 17:20 STATUS: STEVE RE #: [id number] GABBIE: 06/19/22 14:[address]: Bertha Santiago DEPT: Surgical Specimen RECD BY: Brittni Cook ENTERED: 06/19/22 17:22 SP TYPE: Bowel OTHR DR: Anu Nguyễn Tissues: 1 - BIOPSY BOWEL Procedures: GROSS AND MICRO LEVEL 4 Comments: [id number]
[2022-06-19 15:08] VITALS: BP 108/69; PULSE 70; RESP 17; TEMP 36.6; O2SAT 99
[2022-06-19 15:35] VITALS: BP 126/76; PULSE 74; RESP 16; TEMP 36.4; O2SAT 100
--- NOTE | 2022-06-19 15:39 | W.ANESPOSTOP ---
Postoperative Evaluation Date, Time and Location Date Performed: 06/19/22 Time Performed: 15:10 Patient Location: Day Surgery Unit Vital Signs Most Recent Imported Vital Signs: Most Recent Vital Signs Temp Pulse Resp BP Pulse Ox 36.6 C 70 17 108/69 99 06/19/22 15:08 06/19/22 15:08 06/19/22 15:08 06/19/22 15:08 06/19/22 15:08 Pain Score Most Recent Pain Score: Most Recent Pain Score Pain Level 0 06/19/22 15:08 Assessment Mental Status: Awake (Alert & Oriented to Patient Baseline) Airway and Respiratory Function: Patent airway with normal (patient baseline) respiratory exam Cardiovascular Function: Hemodynamically Stable Hydration Status: Adequately Hydrated Nausea & Vomiting: No Nausea or Vomiting Pain: Pt. Denies Any Pain Peripheral Nerve Block: Patient did not receive a nerve block
== END 2022-06-19 16:05 | disposition home or self-care (01) ==
PROVIDERS: PCP Nurse Practitioner Family; Visit Provider Surgery
PROC: 0DJD8ZZ Inspection of Lower Intestinal Tract, Via Natural or Artificial Opening Endoscopic (ICD-10-PCS; CPT 45378; principal; 2022-06-19 14:15)
DX: Z12.11 Encounter for screening for malignant neoplasm of colon (principal); K62.1 Rectal polyp
CPT/HCPCS: 45380; 88305

== ENCOUNTER 2022-06-20 08:56 | Outpatient (CLI) | payer BC, SELFPAY ==
--- NOTE | 2022-06-20 08:45 | DI.RAD_ITS ---
Exam(s) XR HIP RT COMPLETE AP PELVIS EXAM: XR HIP RT COMPLETE AP PELVIS INDICATION: right hip pain. COMPARISON: None TECHNIQUE: 2D digital imaging was performed. Two views. FINDINGS: The hip joint spaces are well maintained. Mild degenerative changes are noted in the right hip with posterior acetabular spurring and slight spurring at the margin of the femoral head. Mild spurring a t the right SI joint. Small enthesophytes are seen at the iliac wings. IMPRESSION: Mild degenerative changes. DATA REPOSITORY: RADIATION DOSE DELIVERED:
== END 2022-06-20 08:57 | disposition home or self-care (01) ==
LOC: DIORS 08:57
PROVIDERS: PCP Nurse Practitioner Family; Referring Provider Nurse Practitioner Family; Visit Provider Student in an Organized Health Care Education/Training Program
DX: M16.11 Unilateral primary osteoarthritis, right hip (principal)
CPT/HCPCS: 73502

== ENCOUNTER → 2022-07-12 00:59 | Outpatient (CLI) | payer BC, SELFPAY ==
--- NOTE | 2022-07-12 06:45 | DI.MRI_ITS ---
Exam(s) MR LOWER JOINT RT WO EXAM: MR LOWER JOINT RT WO CLINICAL HISTORY: Persistent pain,LABRAL TEAR RT HIP JOINT, S73.191A. TECHNIQUE: Multiplanar multisequence MRI was performed. COMPARISON: CR XR HIP RT COMPLETE AP PELVIS from 06/20/2022 FINDINGS: MR examination of the hip was performed according to the usual protocol. No abnormality identified in the internal pelvic soft tissues. Unremarkable appearance of visualized bowel, uterus, and lymph nodes. No pelvic fluid collection. SI joints appear well maintained with no associated abnormal signal. There are small bilateral hip joint effusions. The left hip is unremarkable with no bony signal abnormality, no tendinous or ligamentous abnormality , and grossly normal labrum by noncontrast criteria. On the right, there is abnormal signal in the acetabulum anterosuperiorly with complex cystic spaces, presumably degenerative. Is probable articular cartilage thinning of the femoral head. No signific ant femoral head signal abnormality seen. There is abnormal signal and poor definition of the labrum of the right hip anterosuperiorly raising the possibility of a tear on this noncontrast study. IMPRESSION: Degenerative changes right hip, suspect anterosuperior right hip labral tear. DATA REPOSITORY:
== END ==
PROVIDERS: PCP Nurse Practitioner Family; Visit Provider Student in an Organized Health Care Education/Training Program
DX: M25.551 Pain in right hip (principal); M16.11 Unilateral primary osteoarthritis, right hip; S73.191A Other sprain of right hip, initial encounter; M25.451 Effusion, right hip
CPT/HCPCS: 73721

== ENCOUNTER → 2022-08-23 02:03 | Outpatient (CLI) | payer BC, SELFPAY ==
[2022-08-23] MEDS: methylPREDNISolone ACETATE 80 MG/ML VIAL IM (13:40)
[2022-08-23] MEDS: Bupivacaine 0.5% Pres-Free 10 ML VIAL 5 ML IJ (13:41)
--- NOTE | 2022-08-23 13:43 | DI.RAD_ITS ---
Exam(s) RF JOINT INJECTION FLUORO GUID EXAM: RF JOINT INJECTION FLUORO GUID CLINICAL HISTORY: R HIP PAIN, fluoro guided injection,labral tear,s73.191a TECHNIQUE: 2D and realtime digital imaging was performed. COMPARISON: No exams were available for comparison FINDINGS: Fluoroscopy was utilized by Dr. Aviles during right hip injection. Please see the procedure note. [address] rd copy shows injection in the right hip joint. IMPRESSION: RADIATION DOSE DELIVERED: sandeep Jalloh=0.78 mGy Total DLP
[2022-08-23] MEDS: Omnipaque 300 MG/ML 10 ML BTL IJ (13:44)
--- NOTE | 2022-08-23 14:14 | W.PROCNOTE ---
Date of service: 08/23/22 Time of Service: 13:20 Procedure Note Date of procedure: 08/24/22 Procedure: Right Hip Injection with Fluoroscopic Guidance Surgeon/Proceduralist/Physician: Tyrell Luna Procedure Diagnosis: Right Hip Osteoarthritis Procedure Indications: Maria Del Carmen has had persistent pain of the RIGHT hip and groin. Noninvasive measures have been tried. To serve as both diagnostic and therapeutic, an injection under fluoroscopy was recommended. I had discussed the risks of the procedure and the patient elected to proceed. Procedure Description: Maria Del Carmen was greeted in the flouroscopy room. The correct side was identified and the consent was reviewed with the patient and signed. The patient was then placed in the supine position on the fluoroscopy table. The RIGHT hip was then prepped with Chloraprep. The anterolateral injection starting point was identiifed by bony landmarks and fluoroscopy. The skin and soft tissue in the tract of the injection was anesthetized with 1% Lidocaine. A spinal needle was then inserted deep into the hip joint at the level of the lateral femoral neck under fluoroscopic guidance. A small amount of Omnipaque solution was injected to confirm intraarticular placement. Once confirmed, the hip was injected with 5cc of 0.5% Bupivicaine and 80mg of Depo-Medrol. A bandaid was placed on the injection site. The patient tolerated the procedure well and noted improvement in pre-injection pain.
== END ==
PROVIDERS: PCP Nurse Practitioner Family; Visit Provider Student in an Organized Health Care Education/Training Program
DX: M16.11 Unilateral primary osteoarthritis, right hip (principal)
CPT/HCPCS: 20610; 77002; J1040

== ENCOUNTER 2022-12-13 10:18 | Outpatient (CLI) | payer BC, SELFPAY ==
--- NOTE | 2022-12-13 10:00 | DI.RAD_ITS ---
Exam(s) XR PELVIS AP EXAM: XR PELVIS AP CLINICAL HISTORY: CATIA planning. TECHNIQUE: 2D digital imaging was performed. COMPARISON: CR XR HIP RT COMPLETE AP PELVIS from 06/20/2022 FINDINGS: Single-view No pelvic nor hip fractures in the field of view of this study. No hip joint space narrowing. No obvious degenerative changes in the hips. Bone density normal. No findings suggestive of avascular necrosis. No findings suggestive of developmental dysplasia. IMPRESSION: No significant osseous findings in the hips. DATA REPOSITORY: RADIATION DOSE DELIVERED:
== END 2022-12-13 10:19 | disposition home or self-care (01) ==
LOC: DIORS 10:18
PROVIDERS: PCP Nurse Practitioner Family; Referring Provider Nurse Practitioner Family; Visit Provider Physician Assistant
DX: Z01.818 Encounter for other preprocedural examination (principal)
CPT/HCPCS: 72170

== ENCOUNTER 2023-01-23 02:06 | Outpatient (CLI) | payer BC, SELFPAY ==
--- NOTE | 2023-01-23 | DI.MAMMO_ITS ---
Exam(s) MAMMO SCREENING EXAM: MAMMO SCREENING CLINICAL HISTORY: SCREENING, H/O ABNL MAMMO, Z87.898 TECHNIQUE: Mammograms were interpreted according to the usual protocol including computer analysis w ith CAD system, tomosynthesis and C-view imaging. COMPARISON: 2021 FINDINGS: The breasts are composed of scattered fibroglandular densities, Breast Density category B. No suspicious masses or suspicious microcalcifications are seen. No skin thickening or abnormal axillary lymph nodes are seen. There has been no significant change from prior exams. IMPRESSION: BI-RADS Category 1, Negative mammogram Yearly screening mammography is recommended. Breast Density - Category B, scattered fibroglandular densities. A negative radiographic report should not delay biopsy if a dominant or clinically suspicious mass is present. Up to ten percent of cancers are not identified on mammography. A negative report may reinforce clinical impression. Adenosis and dense breasts may obscure an underlying neoplasm. False positive reports average 6 to 10%. Patient will receive a letter notifying them of these results.
== END 2023-01-23 02:26 ==
LOC: DI 02:06
PROVIDERS: PCP Nurse Practitioner Family; Visit Provider Nurse Practitioner Family
DX: Z12.31 Encounter for screening mammogram for malignant neoplasm of breast (principal); R92.8 Other abnormal and inconclusive findings on diagnostic imaging of breast; Z87.898 Personal history of other specified conditions
CPT/HCPCS: 77063; 77067

== ENCOUNTER 2023-02-14 02:34 | Outpatient (CLI) | payer BC, SELFPAY ==
[2023-02-14 14:20] LABS: HCT 41.7 % (36.0-46.0); HGB 13.9 g/dL (11.2-15.7); MCH 29.3 pg (27.0-33.0); MCHC 33.3 % (32.0-36.0); MCV 88 fL (80-95); MPV 9.3 fL (8.0-11.0); Platelet Count 286 10^3/uL (130-400); RBC 4.74 10^6/uL (3.93-5.22); RDW-SD 38.7 fL; WBC 9.15 10^3/uL (4.4-10.8)
[2023-02-14 14:54] LABS: Anion Gap 7.1 mmol/L (3-11); BUN 15 mg/dL (7-18); CO2 30.9 mmol/L (21.0-32.0); Calcium 9.4 mg/dL (8.5-10.1); Chloride 105 mmol/L (98-107); Estimated GFR 68.21 (mL/min/1.73m2); Glucose 104 mg/dL (74-106); Potassium 3.9 mmol/L (3.5-5.1); Sodium 143 mmol/L (136-145)
== END 2023-02-14 02:35 | disposition home or self-care (01) ==
LOC: LBO 02:34
PROVIDERS: PCP Nurse Practitioner Family; Visit Provider Student in an Organized Health Care Education/Training Program
DX: M25.551 Pain in right hip (principal); M16.11 Unilateral primary osteoarthritis, right hip; Z01.818 Encounter for other preprocedural examination; Z01.812 Encounter for preprocedural laboratory examination
CPT/HCPCS: 36415; 80048; 85027

== ENCOUNTER 2023-03-05 10:47 | Day surgery (SDC) | payer BC, SELFPAY ==
[2023-03-05] VITALS (7 sets, daily range): BP systolic 91–151; BP diastolic 44–83; PULSE 63–78; RESP 14–19; TEMP 36.4–36.6; O2SAT 97–100; BMI 41.7
[2023-03-05] MEDS: Acetaminophen 500 MG TAB 1000 MG PO (11:21)
[2023-03-05] MEDS: Celecoxib 200 MG CAP 400 MG PO (11:21)
--- NOTE | 2023-03-05 11:24 | W.ANESPRE ---
General Info Date of Service Date Performed: 03/05/23 Height: 5 ft 3 in Weight: 106.9 kg Body Mass Index (BMI): 41.7 Surgical Procedure: Operation Date: 03/05/23 14:35 Proposed Procedure Side Surgeon p Hip Total Hip Anterior, BIMENTUM DUAL MOBILITY Right Tyrell Luna MD Meds Allergies and Home Medications Allergies Allergy/AdvReac Type Severity Reaction Status Date / Time No Known Allergies Allergy Unverified 03/04/23 13:48 Home Medication Medication Instructions Recorded ibuprofen 800 mg tablet 800 mg PO PRN PRN 12/20/18 fluoxetine 10 mg capsule 10 mg PO DAILY 09/14/21 Current Visit Medications: Current Medications Generic Name Dose Route Start Last Admin Trade Name Freq PRN Reason Stop Dose Admin Acetaminophen 1,000 mg 03/05/23 06:00 03/05/23 11:21 Acetaminophen 500 Mg Tab PO 03/05/23 16:00 1,000 mg PREOP ZACK Administration Celecoxib 400 mg 03/05/23 06:00 03/05/23 11:21 Celecoxib 200 Mg Cap PO 03/05/23 16:00 400 mg PREOP ZACK Administration Hydromorphone HCl 0.5 mg 03/05/23 07:27 Hydromorphone 2 Mg/Ml Syr IVP Q2H PRN PRN Tranexamic Acid 1,000 mg/ 60 mls @ 360 mls/hr 03/05/23 06:00 Sodium Chloride IV 03/05/23 16:00 PREOP ZACK Ringer's Solution 1,000 mls @ 80 mls/hr 03/05/23 06:00 IV 03/05/23 23:59 INFUSION ZACK Cefazolin Sodium/Dextrose 2 gm in 50 mls @ 100 mls/hr 03/05/23 06:00 Ancef Duplex IVPB 03/05/23 23:59 PREOP ZACK IV Miscellaneous Supplies 1 each 03/05/23 06:00 Iv Access IV 03/05/23 23:59 DIRECTED ZACK Ondansetron HCl 4 mg 03/05/23 07:27 Ondansetron 4 Mg/2 Ml Vial IVP Q6H PRN PRN Nausea Oxycodone HCl 0 mg 03/05/23 07:27 Oxycodone 5 Mg Tab PO Q3H PRN PRN Pain Sodium Chloride 0 ml 03/05/23 06:00 Normal Saline Flush 10 Ml Syr IV 03/05/23 23:59 PRN PRN Sodium Chloride 0 ml 03/05/23 06:00 Normal Saline 10 Ml Vial IJ 03/05/23 23:59 DIRECTED PRN Sterile Water 0 ml 03/05/23 06:00 Water,Injection,Sterile 10 Ml Vial IJ 03/05/23 23:59 DIRECTED PRN PFSH Active Problems Active Problems: Problem Status Onset Code Primary osteoarthritis of right hip 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 Labral tear of right hip joint S73.191A Colon polyp ~06/19/22 K63.5 Diverticula of colon K57.30 Screening for colon cancer Z12.11 Medical History Medical History Anxiety Arthralgia BMI 34.0-34.9,adult Depression Katie-Danlos disease Elevated TSH Female stress incontinence History of cardiac murmur as a child denies it being heard recently Osteoporosis Pes planus Surgical History Surgical History History of colonoscopy with polypectomy (~06/19/22) Hx of adenoidectomy Tobacco Smoking/Tobacco Use Status: Never Alcohol Alcohol Intake: current Alcohol intake frequency: a few times a month Substance Use Substance use: Rarely Substance use type: marijuana Vital Signs and Lab Results Vital Signs Most Recent Vital Signs in EMR: Most Recent Vital Signs Temp Pulse Resp BP Pulse Ox 36.6 C 71 16 151/83 H 100 03/05/23 11:12 03/05/23 11:12 03/05/23 11:12 03/05/23 11:12 03/05/23 11:12 Lab Results Blood Type / Crossmatch: No Data to Display Complete Blood Count: White Blood Count 9.15 10^3/uL (4.4-10.8) 02/14/23 14:15 Red Blood Count 4.74 10^6/uL (3.93-5.22) 02/14/23 14:15 Hemoglobin 13.9 g/dL (11.2-15.7) 02/14/23 14:15 Hematocrit 41.7 % (36.0-46.0) 02/14/23 14:15 Platelet Count 286 10^3/uL (130-400) 02/14/23 14:15 Complete Metabolic Panel: Sodium 143 mmol/L (136-145) 02/14/23 14:15 Potassium 3.9 mmol/L (3.5-5.1) 02/14/23 14:15 Chloride 105 mmol/L (98-107) 02/14/23 14:15 Carbon Dioxide 30.9 mmol/L (21.0-32.0) 02/14/23 14:15 BUN 15 mg/dL (7-18) 02/14/23 14:15 Creatinine 1.0 mg/dL (0.55-1.02) 02/14/23 14:15 Est GFR (CKD-EPI 2020) 68.21 (mL/min/1.73m2) 02/14/23 14:15 Calcium 9.4 mg/dL (8.5-10.1) 02/14/23 14:15 Glucose 104 mg/dL (74-106) 02/14/23 14:15 Liver Function Panel: No Data to Display Coagulation Panel: No Data to Display Cardiac Panel: No Data to Display Arterial Blood Gas: No Data to Display Venous Blood Gas: No Data to Display Pancreas Panel: No Data to Display Thyroid Panel: No Data to Display Infectious Disease: No Data to Display Blood Cultures: No Data to Display Toxicology Panel: No Data to Display Panel: No Data to Display Imaging and Studies Imaging and Studies Study information below may be from another EMR and interpreted by another provider. Please see original notes in EMR for more complete details. Echocardiogram Summary: DATE: 2013 ____ IN PATIENT __X__ OUT-PATIENT ORDERING PHYSICIAN: Suz[facility] Angulo [facility] HEIGHT: 5 FT 4 IN WEIGHT: 207.5 LBS BSA: 2 m2 Blood pressure 140/70. STUDY INDICATIONS: Katie-Danlos syndrome, shortness of breath, fatigue, psychogenic. EKG - sinus rhythm. FINDINGS: LEFT VENTRICLE/LVEF: LV normal size and function, EF 60-65%, normal wall thickness, no wall motion abnormalities. RIGHT VENTRICLE: RV normal size and function. AORTIC VALVE: Trileaflet, opens well, no , no AI, DOI 0.72 MITRAL VALVE: Normal morphology, trivial MR. TRICUSPID VALVE: Normal morphology, trivial TR. RSV/PA/RIGHT ATRIAL PRESSURE: RSV 10+13=23 mmHg, normal PA pressure. PULMONIC VALVE: Not well seen. ATRIA: Normal size. DIASTOLIC INDICES: E/e' (M) 10.5, E/e' (L) 6.3. GREAT VESSELS: Normal, normal aortic arch. PERICARDIUM: No effusion. Anesthesia Assessment and Plan Anesthesia History Personal History: No History of Anesthesia Complications Family History: No Family History of Anesthesia Complications Exercise Tolerance Exercise Tolerance: Metabolic Equivalents>4 Pertinent Negatives Pertinent Negatives: No Symptoms of GERD, No Major Cardiovascular Symptoms or Complaints and No Major Pulmonary Symptoms or Complaints Cardiac & Pulmonary Exam Cardiac Exam: Normal S1/S2 Heart Sounds Pulmonary Exam: Clear Bilateral Breath Sounds Implantable Cardiac Device Does patient have a Pacemaker or an ICD?: No Airway Exam Known Difficult Airway: No Mallampati Class: 3 Mouth Opening: Normal (> 3cm) Thyromental Distance: Greater than 3 cm Neck Range of Motion: Full ROM Neck Circumference: Normal Teeth Condition: Normal Dentition ASA Classification ASA Score: ASA 3 Emergency Case?: No NPO Status NPO Status: NPO Clears >2 hours, Solids >8 hours and NPO Clear Liquids>2 hours Status Status: Negative HCG Anesthesia Plan Resuscitation Status: Full Code Anesthesia Technique: Spinal Anesthesia Airway Planned: Natural Airway Monitors Used: Standard Monitors
[2023-03-05] MEDS: Lactated Ringers 1,000 ML 80 ML IV (11:40)
[2023-03-05] MEDS: ceFAZolin 2 GM/50 ML BAG IVPB (13:27)
--- NOTE | 2023-03-05 14:42 | DI.RAD_ITS ---
Exam(s) XR HIP RT IN OR EXAM: XR HIP RT IN OR CLINICAL HISTORY: right hip replacement TECHNIQUE: 2D and realtime digital imaging was performed. CONTRAST MATERIAL: Refer to procedure report. COMPARISON: No exams were available for comparison FINDINGS: Fluoroscopy was provided for Dr. Luna during the performance of a right hip replacement. Please refer to the procedure report for complete details. Ka,r=7.34 mGy IMPRESSION: RADIATION DOSE DELIVERED:
--- NOTE | 2023-03-05 15:17 | DSE_ITS ---
Date of service: 03/05/23 Time of Service: 15:23 DS: Diagnosis Discharge Diagnosis (1) Primary osteoarthritis of right hip: Status: Acute Discharge Plan Disposition Patient Disposition: Home Condition: Good Discharge Details Reason For Visit: Right hip DJD Attending Provider: Tyrell Luna Primary Care Provider: Anu Nguyễn Home Meds and New Rx's Prescriptions: New acetaminophen 500 mg tablet 1,000 mg PO Q8H PRN Qty: 90 0RF Rx Instructions: Take two tablets up to every 8 hours as needed for pain aspirin 81 mg tablet,delayed release (DR/EC) 81 mg PO BID 30 Days Qty: 60 0RF celecoxib [Celebrex] 200 mg capsule 200 mg PO BID PRNQty: 60 0RF Rx Instructions: Take one tablet twice daily for pain and inflammation docusate sodium [Colace] 100 mg capsule 100 mg PO BID Qty: 30 0RF pantoprazole 40 mg tablet,delayed release (DR/EC) 40 mg PO DAILY 14 Days Qty: 14 0RF dexamethasone 4 mg tablet 4 mg PO DAILY Qty: 2 0RF Rx Instructions: Take one tablet once daily for two days oxycodone 5 mg tablet 5 mg PO Q6H PRNQty: 12 0RF Rx Instructions: Take one tablet up to every 6 hours as needed for severe postoperative pain Continued fluoxetine 10 mg capsule 10 mg PO DAILY Discontinued ibuprofen 800 mg Tablet 800 mg PO PRN PRN Discharge Instructions Additional Instructions: Total Hip Discharge Instructions Activity: The most important activity is to walk. You should try to take short walks a few times a day. You have no restrictions on movement or positioning, but do not try to force what you do. You will find some stiffness and weakness with hip flexion (lifting your knee). Do not try to strengthen this too early, continue to practice walking and stairs and this will come. - Outpatient physical therapy can be helpful to help return you to a normal gait and improve your flexibility and strength. This can start around 2 weeks. For some patients, it?s not necessary. Usually this is determined at the time of discharge or at the first post-operative visit. - You should wear the NATALIO hose on both legs for 2 weeks. Dressing: Keep the surgical dressing in place for at least one week. After the first week it may be removed and replace with light gauze and tape or nothing. It may get wet after 3 days but avoid soaking the dressing. If it gets wet, just lightly pat dry. It is important to always keep some gauze between skin folds, especially when you are sitting. Spend some time with the wound exposed when you are lying flat as the incision does wrinkle onto itself. Medications: - You should take Tylenol and an anti-inflammatory Celebrex as your primary pain control medications. If the Celebrex is too expensive or not covered, please call the office for another alternative (Advil/Ibuprofen or Naproxen/Aleve). - You have been prescribed a stronger pain medication Oxycodone for breakthrough pain, take as needed as prescribed. - You have also been prescribed a stomach acid reduction agent Pantoprozole to help reduce stomach acid and reflux. - You have also been prescribed Decadron to help with post-operative nausea and pain. You will take this for two days starting tomorrow. - You will be taking Aspirin 81mg twice a day for DVT prevention unless instructed otherwise. - If you have constipation you should take Colace (which has been prescribed) or Miralax (which is available [id number]). It takes most people 3-4 days to have a bowel movement. Follow-up: 2 weeks If you have any acute concerns or questions, please do not hesitate to contact the office at [phone]. You may contact Dr. Luna with any questions after hours through the hospital at [phone] or on his cell phone at [phone]. Stand Alone Forms: Anesthesia Discharge Inst., Leilani Ribeiro (U) Referrals: Tyrell Luna MD [ [facility] STAFF PHYSICIAN] - Equipment/Supplies: Walker Activity:: Elevate Remove Dressings/Wound Care:: Do Not Remove Shower/Bathe:: Cover Diet:: As Tolerated Discharge Orders Discharge Orders: Discharge Order (Routine); Ordered 03/05/23 Ordered By: Tyrell Luna Discharge Data Discharge Date/Time-TO BE ENTERED AT DEPARTURE: 03/05/23 17:40 DS: Summary Time Spent with Patient providing and/or coordinating discharge services: Less than 30 minutes Status at Discharge Functional status at discharge: uses cane/walker Overall status at discharge: patient is progressing back to baseline Mental Status: mental status grossly normal Speech and Movement: speech and movement normal Mood: congruent mood Affect: normal affect Exam Psych Mental Status: mental status grossly normal Speech and Movement: speech and movement normal Mood: congruent mood Affect: normal affect DS: Data Vitals/I&O Vitals and I&O: Vital Signs Temperature 97.9 F 03/05/23 11:12 Pulse 71 03/05/23 11:12 Pulse Rhythm Regular 03/05/23 11:12 Respiratory Rate 16 03/05/23 11:12 Respiratory Depth Deep 03/05/23 11:12 Blood Pressure 151/83 H 03/05/23 11:12 Pulse Oximetry 100 03/05/23 11:12 Oxygen Delivery Method Room Air 03/05/23 11:12 Oxygen Flow Rate 0 03/05/23 11:12 Pain Level 2 03/05/23 11:12 Intake & Output 03/04/23 03/05/23 03/05/23 23:59 11:59 23:59 Intake Total 610 / 610 Output Total 200 / 200 Balance 410 / 410 Weight 239 lb 0.015 oz 235 lb 10.786 oz 235 lb 10.786 oz Intake: IV 610 / 610 Output: Estimated Blood Loss 200 / 200 PFSH All Active Problems Primary osteoarthritis of right hip (Acute) Hypermobile Katie-Danlos syndrome (Acute) Labral tear of right hip joint (Acute) Colon polyp (Acute ~06/19/22) hyperplastic/inflammatory Diverticula of colon (Acute) pandivert- mild 06/2022 Screening for colon cancer (Acute) Medical History Anxiety Arthralgia BMI 34.0-34.9,adult Depression Katie-Danlos disease Elevated TSH Female stress incontinence History of cardiac murmur as a child denies it being heard recently Osteoporosis Pes planus Surgical History History of colonoscopy with polypectomy (~06/19/22) Hx of adenoidectomy Social History Smoking/Tobacco Use Status: Never Smoking risk assessment performed?: Yes Alcohol Intake: current Alcohol Intake frequency: a few times a month Drug use: Rarely Substance use type: marijuana Current gender identity: female Do you feel safe at home: Yes Do you feel safe in your relationship?: Yes Time Spent with Patient Time Spent with Patient: <45 minutes Time was spent: ordering medications,tests, procedures, counseling the patient and care coordination
--- NOTE | 2023-03-05 16:21 | W.PM.OP ---
Date of service: 03/05/23 Time of Service: 14:45 Operative Note Operative Note DATE OF PROCEDURE: 03/05/23 PRE-OP DIAGNOSIS: Right Hip Arthritis and Hip Dysplasia POST-OP DIAGNOSIS: same PROCEDURE: Right Anterior Total Hip Arthroplasty with Intraoperative Navigation SURGEON: Tyrell Luna AND RESCUE FIRE FIGHTER CRASH FIRE: Bertha Tse ANESTHESIA TYPE: Spinal Refer to Anesthesia Record ESTIMATED BLOOD LOSS: 200 PATHOLOGY: none sent TOURNIQUET TIME: 0 COMPLICATIONS: None Patient was transported to: PACU Patient's condition: stable Implants: 1. Depuy Bimentun Dual Mobility Acetabular Component, 47mm 2. Depuy Bimentum Dual Mobility Liner, [id number] 3. Depuy Corail Short Neck Collared Femoral Stem, Size 8 4. Depuy Altrx Ceramic Femoral Head, Size 28+5mm Indications: I have seen Maria Del Carmen in clinic for symptoms of hip arthritis, confirmed with radiographic findings as well as complete relief of symptoms with intra-articular injection. She has exhausted nonoperative methods and was having significant limitations in daily function and desired better function and less pain. I discussed the technical details of a hip replacement. I explained the risks of the procedure to include, but not limited to, bleeding, infection, pain, stiffness, fracture, damage to nerves and vessels, damage to muscles and tendons, loosening, instability, leg length inequality, need for repeat procedure, blood clot and cardiopulmonary demise. Despite these risks, NAME elected to proceed. Findings: There was focal arthritis of the superior weight-bearing portion of the femoral head. Procedure Description: Maria Del Carmen was greeted in the preoperative holding area where the correct side was identified and marked. The consent was reviewed with the patient and signed. The history and physical was updated. All questions were answered. She was taken back to the operating room. A spinal anesthestic was then administered. The feet were wrapped with cast padding and Coban and then placed into the boot liners and then into the boots. Care was taken to protect the skin and make sure the heels were fully down and the boots were stable. The patient was then positioned onto the HANA table. Both legs were held in a neutral position. SCDs were applied. The patient was then slid down onto a peroneal post. Prophylactic antibiotics in the form of Cefazolin were administered. 1g of Tranxemic Acid was given intravenously within 30 minutes of incision. The right leg was then prepped with Chloraprep and draped in a standard fashion. A second prep with Chloraprep was performed prior to placement of a shower-curtain type drape with Iodine impregnated skin protection. A timeout to confirm correct identity, side and site, procedure, allergies, anesthesia, and medical concerns was performed. An obliquely oriented incision was made starting lateral to the ASIS and running distal over the Tensor Fascia Rae (TFL) muscle belly toward the fibular head, approximately 10cm. The skin and soft tissue was dissected sharply, through Naif?s fascia, and to the fascia of the TFL. With the fascia and superior border of the IT band identified, the fascia was incised with a new knife just above any perforators from the IT band. The TFL muscle belly was bluntly dissected away from the fascia and moved laterally. The fat between TFL and rectus was identified to ensure the dissection was not within the TFL. Blunt dissection created space between abductors and the capsule and retractor was placed over the lateral femoral neck. The fibers of the rectus femoris tendon were identified and these were freed from the anterior capsule. A second cobra retractor was placed around the medial femoral neck. The TFL was further retracted laterally to show the deep fascia. Careful dissection through this layer identified three main crossing vessels of the lateral femoral circumflex. These were cauterized in multiple locations and then cut without any noticeable bleeding. The TFL was further released bluntly from the deep fascia to expose anterior hip capsule and fat The Julio orthopaedic retractor was then placed beneath the TFL and against sartorius and medial soft tissues to protect and retract the soft tissues. A T-capsulotomy was then performed starting at the superior lateral acetabulum and moving distally to the intertrochanteric ridge. These capsular flaps were tagged with a No. 1 Ethibond and elevated from within. The capsular flaps were released to the shoulder of the lateral neck and to the lesser trochanter to give excellent visualization of the proximal femur. A neck osteotomy was performed using an oscillating saw based on preoperative templates. This cut started in the shoulder and of the lateral neck and exited medially. The saw was at all times directed medially to avoid injury to the greater trochanter. Gross traction was applied to the leg and the osteotomy opened. The femoral head was removed with a corkscrew, making sure to protect the TFL on its exit. Traction was released after head removal. This was measured on the back table to determine the starting reamer size. Portions of the rectus obscuring visualization were minimally elevated off the superior acetabulum. An anterior retractor was placed over the anterior wall between capsule and labrum and attached to the Gripper retraction system. The femur was rotated to 90 degrees and medial capsule was fully released until the lesser trochanter was palpable and visible; the femur was returned to 30 degrees. A posterior retractor was placed similarly between capsule and labrum. This provided excellent visualization. The contents of the cotyloid fossa were removed with electrocautery and the labrum was removed with a knife. Acetabular reaming began with a 43mm reamer. This first reaming was directed anterior to posterior and medial to get down to the true floor. This was inspected and reamed until the true floor was reached. The anterior retractor was then released and entry and exit was provided by traction on the capsular flaps. I then reamed sequentially up to a 47mm reamer where good fit was obtained. The larger reamers were oriented based on anatomical reference of the anterior and lateral del castillo to ensure proper abduction and anteversion. Positioning and size was confirmed with the fluoroscopy. A 47mm Depuy Bimentum dual mobility acetabular component was selected. The deep tissues were irrigated. A portion of the venus-articular cocktail was then injected around the acetabulum into the capsule and periosteum. This cocktail consisted of 123mg of Ropivacaine, 0.25mg of Epinephrine, 0.04mg of Clonidine, and 15mg of Ketorolac, diluted to 50cc. The leg was rotated to 120 degrees. Any remaining medial capsule was released until the lesser trochanter was easily palpable. A retractor was placed medially. The lateral capsule was further released into the shoulder to allow access to the greater trochanter. A Steven retractor was placed over the greater trochanter which allowed the trochanter to flip in front of the capsule for excellent exposure. The leg was brought down into maximal extension and 20 degrees of adduction while ensuring there was no impingement on the acetabulum. Any remnant capsule within the trochanter was released. Piriformis and obturator externis were identified and protected. There was excellent access to the proximal femur. The lateral neck remnant was removed with a rongeur. A blunt canal probe was used to identify the canal and trajectory for later broaching. A box osteotome initiated the broach course. A small curved rasp and a curved curette were used to work laterally. Broaching then began with a size 8 Corail broach. This was inserted manually around the trochanter and into the canal before mallet blows. The broach was seated to a few millimeters below the cut level based on the neck cut and the preoperative template. Sequential broaching was continued with the [employer] pneumatic broaching device until a tight fit was obtained with good rotational control of the femur. A trial Corail short neck was inserted along with a +1.5 trial head. The leg was brought out of extension and adduction and then reduced with traction and internal rotation. The leg was stable anteriorly in a position of 30 degrees of extension and 90 degrees of external rotation. Fluoroscopy was used to ensure there was no fracture and the stem was seated well. Leg lengths were checked with an AP pelvis and pelvic reference points. [employer] navigation system was used to confirm appropriate positioning and leg length and offset. Going up to a +5 head would perfectly reduce the offset and leg length. Once content with the desired offset and leg lengths, the leg was brought back into extension, external rotation and adduction. The periosteum and surrounding tissue was injected with remaining portion of the venus-articular cocktail. The proximal femur was irrigated as well as the deep tissues. The Depuy Corail short neck collared stem, size 8, was then manually inserted into the proximal femur making sure to control rotation. It was then malleted into position with light blows, giving breaks to allow bone expansion and decrease risk of fracture. The selected Depuy Altrx Ceramic Head, size 28+5mm, was inserted into the [id number] Bimentum dual mobility liner. This was then placed onto the clean and dry trunnion and secured with impaction onto the tapered fit. The leg was brought back out of extension and adduction and reduced with traction and internal rotation. Stability was confirmed with no shuck at 90 degrees of external rotation and 30 degrees of extension. No impingement through range of motion arc. Final x-ray images were obtained with fluoroscopy to confirm adequate positioning and no intraoperative fracture. The deep tissues were thoroughly irrigated with Surgiphor, betadine solution. This was allowed to sit in the wound for 3 minutes before being thoroughly irrigated out with normal saline. The capsule was then reapproximated with the previously placed Ethibond sutures. The TFL fascia was finally closed with a No. 2 Stratafix, barbed suture. Deep tissues were then reapproximated with 0 Vicryl and a running 2-0 Vicryl. The skin was closed with a running 4-0 Monocryl in a subcuticular fashion. This was reinforced with skin glue. A Mepilex silver dressing was applied. At the end of the case, all counts were correct. Maria Del Carmen was transferred to the hospital bed without difficulty and suffering no apparent complication. Maria Del Carmen has a good prognosis. Physical therapy will start today and without restrictions, weight-bearing as tolerated. Aspirin 81mg BID will be used for DVT prophylaxis.
--- NOTE | 2023-03-05 16:27 | W.ANESPOSTOP ---
Postoperative Evaluation Date, Time and Location Date Performed: 03/05/23 Time Performed: 16:27 Patient Location: Day Surgery Unit Vital Signs Most Recent Imported Vital Signs: Most Recent Vital Signs Temp Pulse Resp BP Pulse Ox 36.4 C L 78 16 105/66 98 03/05/23 16:15 03/05/23 16:15 03/05/23 16:15 03/05/23 16:15 03/05/23 16:15 Pain Score Most Recent Pain Score: Most Recent Pain Score Pain Level 0 03/05/23 16:15 Assessment Mental Status: Awake (Alert & Oriented to Patient Baseline) Airway and Respiratory Function: Patent airway with normal (patient baseline) respiratory exam Cardiovascular Function: Hemodynamically Stable Hydration Status: Adequately Hydrated Nausea & Vomiting: No Nausea or Vomiting Pain: Pain is tolerable per patient Peripheral Nerve Block: Patient did not receive a nerve block
[2023-03-05] MEDS: oxyCODONE 5 MG TAB PO (16:28)
--- NOTE | 2023-03-05 17:52 | IN_ITS ---
Date of service: 03/05/23 Time of Service: 17:05 PT Notes Visit Reasons: Right hip DJD Physical Therapy Day Surgery Initial Evaluation Date: 03/05/2023 Referring Doctor: JOESPH Singh PT Orders: PT CONSULT: S/P Ortho Surgery Precautions: WBAT on R LE with AD. Patient Profile/Admitting Diagnosis: Maria Del Carmen is a 52-year-old female with degenerative joint disease of the right hip and status post right anterior total hip arthroplasty on postoperative day 0. PMHX: Medical History?(Updated 02/14/23 @ 13:19 by Bertha Tse) Anxiety Arthralgia BMI 34.0-34.9,adult Depression Katie-Danlos disease Elevated TSH Female stress incontinence History of cardiac murmur as a child denies it being heard recentlyOsteoporosis Pes planus Surgical History?(Updated 07/02/22 @ 08:06 by Renee Johnson RN) History of colonoscopy with polypectomy (~06/19/22) Hx of adenoidectomy Social History/Home Situation: Lives alone in an apartment. Will be staying at her mother's house as she recovers for the next week or 2. Mother's house has 3 steps to enter with a rail on one side and a pillar that she can hold on on the other side for support. Independent with all aspects of ADLs prior to surgery. Equipment Owned/DME: None Subjective: Reports aching pain inthe right hip at rest and with movement. Denies headache, chest pain, and lightheadedness throughout session. Objective: General Observation: Supine in bed. In NAD. Mepilex Ag over surgical incision. NATALIO s to B legs. Mental Status: Alert and oriented x 4 Pain: 2/10 in the R hip with movement and weight bearing ROM: Right Lower Extremity: Hip flexion WFL. Hip abduction WFL. Knee flexion WFL. Ankle dorsiflexion WFL. Ankle plantarflexion WFL. Left Lower Extremity: Hip flexion WFL. Hip abduction WFL. Knee flexion WFL. Ankle dorsiflexion WFL. Ankle plantarflexion WFL Strength: Right Lower Extremity: Hip flexors 4/5. Hip abductors 4/5. Knee flexors 5/5. Knee extensors 4/5. Ankle dorsiflexors 5/5. Ankle plantarflexors 5/5. Left Lower Extremity:Hip flexors 5/5. Hip abductors 5/5. Knee flexors 5/5. Knee extensors 5/5. Ankle dorsiflexors 5/5. Ankle plantarflexors 5/5. Sensation: Inatact as to pain and light touch in B LE Bed Mobility/Transfers: Supine to sit standby assist Sit to stand contact-guard assist Stand to sit contact-guard assist Bed to chair contact-guard assist Gait: Tolerated level surface ambulation 150 feet using front wheeled walker with step to gait pattern requiring only standby assist. No LOB. No SOB. Stairs: Completed 6 x 4 inch steps and 4 x 6 inch steps with a step to gait pattern while holding onto bilateral rails for support. No report of increased pain. Denied headache, and chest pain. Did report of worsening lightheadedness right after mobility assessment but recovered after about an hour or so. Balance: Static Sitting: Normal Dynamic Sitting: Normal Static Standing: Fair Dynamic Standing: Fair Special Tests: Mobility Limitations Standardized Measure [facility]-P[facility] 6 clicks Basic Mobility Inpatient Short Form: Raw Score: 23 CMS Score: 11% deficit Informed Consent/Education: Patient instructed in purpose of PT consult. Packet containing exercise protocol has been given to patient. Education and training on initial set of exercises that can be done at home have been completed with patient. NEURO RE-ED: Trained patient with correct performance of exercises below to maximize motor control, joint flexibility, soft tissue extensibility of the B hip musculature during bed mobility, transfers, and ambulation task performance to facilitate return to independent functional mobility performance. Instructed patient with HEP performance with the following: Supine gluteal sets x 5 with 5 sh Supine heels slides x 5 Supine ankle DF/PF x 10 Seated B LAQs x 5 Seated marches x 5 Assessment: Patient requires the use of a front wheeled walker to maximize independence and reduce fall risk. Your mother is a retired nurse and will be available to flores pport as needed. Patient presents with clinical signs and symptoms consistent with current/admitting diagnoses that have resulted to mobility limitations, gait instability, generalized weakness, and impairment of motor control as demonstrated by the following impairment level findings: 1. Decreased strength to R hip major muscle groups 2. Impaired standing balance Impairments are contributing to the following functional limitations: 1. Inability to safely ambulate without assistive device 2. Increase completion time for mobility ADL performance 3. Increased fall risk Patient is assessed as a 25821 moderate complexity based on the following: History: 52-year-old female with impairment level findings, functional limitations, and past medical history as indicated above Examination: Demonstrable impairment in strength, balance, and mobility level with underlying impairments and functional limitations as documented above Presentation: Evolving Decision Makin moderate complexity Goals: N/A. PT evaluation and 1-2 treatment sessions only for functional mobility training using recommended AD and for HEP instruction. Plan of Care/Treatment Plan: N/A. PT evaluation and 1-2 treatment session only for functional mobility training using recommended AD and for HEP instruction. DISCHARGE RECOMMENDATIONS: Home when medically cleared by orthopedic surgeon. Recommend outpatient PT services in order to optimize functional mobility outcomes and facilitate return to independent community ambulation without an assistive device. TREATMENT CODE/TIME: 9716 2 x 26 minutes beginning at 17:05 PM. Thank you for the opportunity to participate in the care of this patient. Ellyn Pinon PT, DPT, CLT [facility] [place], [place]
== END 2023-03-05 17:40 | disposition home or self-care (01) ==
PROVIDERS: PCP Nurse Practitioner Family; Visit Provider Student in an Organized Health Care Education/Training Program
PROC: (CPT 27130; principal; 2023-03-05 14:15)
DX: M16.11 Unilateral primary osteoarthritis, right hip (principal); Q65.89 Other specified congenital deformities of hip
CPT/HCPCS: 27130; 20985; 97162; 73501; J0690; J1100; J2250; J2405

== ENCOUNTER 2023-03-18 10:06 | Outpatient (CLI) | payer BC, SELFPAY ==
--- NOTE | 2023-03-18 08:45 | DI.RAD_ITS ---
Exam(s) XR HIP RT COMPLETE AP PELVIS EXAM: XR HIP RT COMPLETE AP PELVIS CLINICAL HISTORY: 1ST POST OP R CATIA. TECHNIQUE: 2D digital imaging was performed. Two images were obtained. AP, lateral and oblique view s were obtained. COMPARISON: CR XR HIP RT COMPLETE AP PELVIS from 06/20/2022 CR XR PELVIS AP from 12/13/2022 XA XR HIP RT IN OR from 03/05/2023 FINDINGS: BONES: There are stable post operative changes present. No fracture or dislocation. JOINTS: The orthopedic hardware is in good position. No evidence of hardware loosening. SOFT TISSUE: Normal. IMPRESSION: Stable postoperative changes. DATA REPOSITORY: RADIATION DOSE DELIVERED:
== END 2023-03-18 10:07 | disposition home or self-care (01) ==
LOC: DIORS 10:06
PROVIDERS: PCP Nurse Practitioner Family; Visit Provider Student in an Organized Health Care Education/Training Program
DX: Z96.641 Presence of right artificial hip joint (principal); Z09 Encounter for follow-up examination after completed treatment for conditions other than malignant neoplasm
CPT/HCPCS: 73502

== ENCOUNTER 2023-06-03 15:14 | Outpatient (REF) | payer BC, SELFPAY ==
[2023-06-03 15:35] LABS: Anion Gap 6.6 mmol/L (3-11); BUN 14 mg/dL (7-18); CO2 28.4 mmol/L (21.0-32.0); CREATININE 0.8 mg/dL (0.55-1.02); Calcium 8.9 mg/dL (8.5-10.1); Chloride 108 mmol/L (98-107); FREE T4 0.89 ng/dL (0.76-1.46); Glucose 107 mg/dL (74-106); Potassium 4.4 mmol/L (3.5-5.1); Sodium 143 mmol/L (136-145); TSH 5.23 uIU/mL (0.36-3.74)
[2023-06-03 15:53] LABS: Hemoglobin A1C 5.4 % (<5.7)
[2023-06-03 16:09] LABS: Calculated LDL 145 mg/dL (<100); Cholesterol 206 mg/dL (<200); HDL Cholesterol 41 mg/dL (40-60); Triglyceride 101 mg/dL (<150)
== END 2023-06-03 15:15 | disposition home or self-care (01) ==
LOC: NCHCN 15:14
PROVIDERS: PCP Physician Assistant; Visit Provider Physician Assistant
DX: E78.5 Hyperlipidemia, unspecified (principal); R94.6 Abnormal results of thyroid function studies; Z13.1 Encounter for screening for diabetes mellitus
CPT/HCPCS: 80048; 80061; 83036; 84439; 84443

== ENCOUNTER 2024-02-23 11:18 | Emergency (ER) | payer BC, SELFPAY ==
[2024-02-23 11:21] VITALS: BP 165/98; PULSE 101; RESP 16; TEMP 36.7; O2SAT 97
--- NOTE | 2024-02-23 11:30 | DI.RAD_ITS ---
Exam(s) XR CHEST 2V PA LATERAL EXAM: XR CHEST 2V PA LATERAL CLINICAL HISTORY: cough. TECHNIQUE: 2D digital imaging was performed. COMPARISON: No exams were available for comparison FINDINGS: 2 views: Heart size is normal. The mediastinum is not widened. Lungs are clear. No infiltrates nor pleural effusions. IMPRESSION: No acute pulmonary findings. DATA REPOSITORY: RADIATION DOSE DELIVERED:
[2024-02-23 11:34] VITALS: BP 165/98; PULSE 101; RESP 16; TEMP 36.7; O2SAT 97
--- NOTE | 2024-02-23 11:38 | ED.GENADUL_ITS ---
Discharge Plan Disposition Patient Disposition: Home Condition: Good Discharge Details Clinical Impression: Cough, Bronchitis Primary Care Provider: Eduardo Scott ED Provider: Rod Diaz Home Meds and New Rx's Prescriptions: New azithromycin 250 mg tablet See Rx Instructions .ROUTE .COMPLEX Qty: 6 0RF Rx Instructions: For 250 mg dose pack: take 500 mg today (day 1), then 250 mg for 4 days (days 2-5) albuterol sulfate 90 mcg/actuation HFA aerosol inhaler 2 puff inhalation Q4H PRN (Reason: shortness of breath or wheezing) Qty: 8.5 2RF No Action fluoxetine 10 mg capsule 10 mg PO DAILY celecoxib 200 mg capsule See Rx Instructions .ROUTE .COMPLEX Qty: 30 0RF Dose Instruction: TAKE ONE CAPSULE BY MOUTH EVERY DAY Rx Instructions: TAKE ONE CAPSULE BY MOUTH EVERY DAY acetaminophen 500 mg tablet 1,000 mg PO Q8H PRN Qty: 90 0RF Rx Instructions: Take two tablets up to every 8 hours as needed for pain Discharge Instructions Instructions: Acute Bronchitis (ED) Additional Instructions: You were seen in the emergency department for cough and shortness of breath. We performed a chest x-ray that was unremarkable. Your COVID flu and RSV tests are pending and I will call you if these are positive. You likely have bronchitis. This is most likely caused by a virus. It should improve over the next few days. Your x-ray was unremarkable and there is no signs of a pneumonia but will give you a course of azithromycin to cover atypical causes of pneumonia or atypical bronchitis. You can use the inhaler 2 puffs every 4 hours for any wheezing or shortness of breath. Return here for worsening shortness of breath or if you have any other concerns. Otherwise follow-up with your primary care doctor. Referrals: Eduardo Scott [Primary Care Provider] - 1 week HPI General Mode of arrival: ambulatory . Date/Time Provider Initiated Documentation: 02/23/24 11:28 . Limitations to Documentation: no limitations . Information obtained by: patient . HPI Narrative: This is a 53-year-old female who presents with cough. Sounds like she had an upper respiratory syndrome about a month ago. Had a lingering dry nonproductive cough since then. Over the last 4 days developed sore throat, headache, worsening productive cough, and weakness. Still eating and drinking with no abdominal pain. No chest pain. She went to urgent care yesterday and had a rapid COVID and flu that were negative and sent home with a pulse oximeter. It has been hovering around 92 to 94% so she came here. Related Data Home Medications Medication Instructions Recorded Confirmed fluoxetine 10 mg capsule 10 mg PO DAILY 09/14/21 02/23/24 acetaminophen 500 mg tablet 1,000 mg (2 x 500 mg) PO Q8H PRN 03/05/23 02/23/24 pain #90 tabs celecoxib 200 mg capsule See Rx Instructions .Route 06/26/23 02/23/24 .COMPLEX #30 caps albuterol sulfate 90 mcg/actuation 2 puff inhalation Q4H PRN 02/23/24 aerosol inhaler shortness of breath or wheezing #8.5 grams azithromycin 250 mg tablet See Rx Instructions PO .COMPLEX #6 02/23/24 tabs Previous Rx's Medication Instructions Recorded acetaminophen 500 mg tablet 1,000 mg (2 x 500 mg) PO Q8H PRN 03/05/23 pain #90 tabs celecoxib 200 mg capsule See Rx Instructions .Route 06/26/23 .COMPLEX #30 caps albuterol sulfate 90 mcg/actuation 2 puff inhalation Q4H PRN 02/23/24 aerosol inhaler shortness of breath or wheezing #8.5 grams azithromycin 250 mg tablet See Rx Instructions PO .COMPLEX #6 02/23/24 tabs Allergies Allergy/AdvReac Type Severity Reaction Status Date / Time No Known Allergies Allergy Unverified 02/23/24 11:21 General Stated Complaint: RespSymp ABENA: 4 Review of Systems Constitutional Constitutional: Denies chills, Denies fever(s), Reports headache(s), Reports malaise and Reports weakness Eyes Eyes: Denies change in vision ENT Ears, Nose, Mouth, and Throat: Reports headache(s), Denies odynophagia and Reports sore throat Cardiovascular Cardiovascular: Denies chest pain and Reports dyspnea Respiratory Respiratory: Reports cough, Denies hemoptysis and Reports dyspnea Gastrointestinal Gastrointestinal: Denies abdominal pain, Denies diarrhea, Denies nausea, Denies odynophagia and Denies vomiting Genitourinary Genitourinary: Denies dysuria Musculoskeletal Musculoskeletal: Denies myalgias Integumentary/Breasts Skin/Breast: Denies changing lesions Neurologic Neurologic: Denies behavioral changes, Reports headache(s) and Reports weakness Psychiatric Psychiatric: Denies behavioral changes Endocrine Endocrine: Denies heat intolerance Hematologic/Lymphatic Hematologic/Lymphatic: Denies lymphadenopathy Exam Const General: cooperative Nutritional Appearance: average body habitus Orientation: alert, awake and oriented x3 HENMS Head: normal to inspection Ears: external ears normal Mouth: moist mucous membranes Eyes Pupils: PERRL EOM: EOM intact bilaterally and No nystagmus Neck Neck: full ROM and no tracheal deviation Chest Chest: normal inspection of the chest Resp Auscultation: clear to auscultation bilaterally Cardio Rate: regular rate Rhythm: regular rhythm GI Inspection: normal to inspection Palpation: soft, no guarding, not rigid and nontender Back/Spine/Pelvis Back: No no CVA tenderness Thoracic/Lumbar Spine: thoracic and lumbar spine normal to inspection Skin General skin exam: no rashes or lesions noted Neuro General: patient alert, patient awake and patient oriented x3 Cranial Nerves: CN's II-XI intact bilaterally, PERRL and no nystagmus Cognition: normal cognition Motor: muscle tone normal throughout and strength 5/5 throughout Sensory Exam: no sensory deficits noted Extrem General: normal to inspection Course Vital Signs Vital signs: Vital Signs Temperature 36.7 C 02/23/24 11:21 Pulse 101 H 02/23/24 11:21 Respiratory Rate 16 02/23/24 11:21 Blood Pressure 165/98 H 02/23/24 11:21 Pulse Oximetry 97 02/23/24 11:21 Temperature 36.7 C 02/23/24 11:34 Temperature Source Temporal Artery Scan 02/23/24 11:34 Pulse 101 H 02/23/24 11:34 Respiratory Rate 16 02/23/24 11:34 Respiratory Effort Normal, Non-Labored 02/23/24 11:34 Blood Pressure 165/98 H 02/23/24 11:34 Blood Pressure Position Supine 02/23/24 11:34 Pulse Oximetry 97 02/23/24 11:34 Oxygen Delivery Method Room Air 02/23/24 11:34 Oxygen Flow Rate 0 02/23/24 11:34 Pain Level 6 02/23/24 11:34 Medical Decision Making 53-year-old female presents with cough and shortness of breath. Likely a viral bronchitis. Will get x-ray of the chest to rule out bacterial pneumonia or pneumothorax which I think is much less likely. No significant wheezing on examination but will give albuterol inhaler to see if this helps with the patient's subjective symptoms. No hypoxemia or increased work of breathing here so no role for more aggressive treatment. Will swab for COVID/flu/RSV as these are certainly within the differential. Will await initial testing and reevaluate. 1247pm reeval Chest x-ray unremarkable. COVID and flu still pending. Could represent atypical pneumonia and will give Z-Eduardo to go with. Feels better and would like to leave. Has albuterol inhaler with spacer to go home with. Will discharge with return precautions. Imaging Data Radiologic Study: Imaging: X-Ray (chest) Radiologist's impression: Chest x-ray unremarkable Lab Data Lab results reviewed: Yes I reviewed the patient's lab results. Quality:SDOH Health Related Social Needs: No Data to Display PFSH All Active Problems (Updated 02/23/24 @ 12:48 by Rod Diaz MD) Bronchitis (Acute) Cough (Acute) History of total right hip replacement (Acute 03/05/23) Hypermobile Katie-Danlos syndrome (Acute) Colon polyp (Acute ~06/19/22) hyperplastic/inflammatory Diverticula of colon (Acute) pandivert- mild 06/2022 Screening for colon cancer (Acute) Medical History History of cardiac murmur as a child denies it being heard recently BMI 34.0-34.9,adult Anxiety Depression Osteoporosis Katie-Danlos disease Pes planus Elevated TSH Female stress incontinence Arthralgia Surgical History History of colonoscopy with polypectomy (~06/19/22) Hx of adenoidectomy Social History Smoking/Tobacco Use Status: Never Smoking risk assessment performed?: Yes Alcohol Intake: current Alcohol Intake frequency: a few times a month Drug use: Rarely Substance use type: marijuana Housing: house Current gender identity: female Do you feel safe at home: Yes Do you feel safe in your relationship?: Yes
[2024-02-23] MEDS: Inhaler, Assist Device 1 EACH MC (11:45)
[2024-02-23] MEDS: Albuterol HFA 8 GM 60 PUFF INH IH (11:48)
--- NOTE | 2024-02-23 12:41 | DI.VRAD_ITS ---
PROCEDURE INFORMATION: Exam: XR Chest Exam date and time: 02/23/2024 12:10 PM Age: 53 years old Clinical indication: Other: Cough TECHNIQUE: Imaging protocol: Radiologic exam of the chest. Views: 2 views. COMPARISON: CT neck w 07/26/2019 9:10 PM FINDINGS: Lungs: No focal infiltrates seen of the lungs. Pleural spaces: No pneumothorax and no pleural effusion seen. Heart/Mediastinum: Heart size appears within normal. Bones/joints: Degenerative changes spine. IMPRESSION: No acute findings seen of the chest. Dictated and Authenticated by: Marvin Dietrich MD. Ordering:TIANA Velasco MD
[2024-02-23 12:51] LABS: COVID-19 PCR Negative (Negative); Influenza A PCR Negative (Negative); Influenza B PCR Negative (Negative); RSV PCR Negative (Negative)
[2024-02-23 13:05] VITALS: BP 165/98; PULSE 101; RESP 16; TEMP 36.7; O2SAT 97
== END 2024-02-23 13:05 | disposition home or self-care (01) ==
PROVIDERS: Emergency Provider Student in an Organized Health Care Education/Training Program; PCP Physician Assistant
DX: R05.9 Cough, unspecified (principal); J40 Bronchitis, not specified as acute or chronic; Z11.52 Encounter for screening for COVID-19
CPT/HCPCS: 87637; 99283; 71046

== ENCOUNTER 2024-03-06 08:12 | Outpatient (CLI) | payer BC, SELFPAY ==
--- NOTE | 2024-03-06 08:15 | DI.RAD_ITS ---
Exam(s) XR HIP RT AP LAT ONLY EXAM: XR HIP RT AP LAT ONLY CLINICAL HISTORY: ANNUAL F/U R CATIA. TECHNIQUE: 2D digital imaging was performed. Two views COMPARISON: CR XR HIP RT COMPLETE AP PELVIS from 03/18/2023 FINDINGS: BONES: No acute fracture is present. No bony destructive lesion is seen. JOINTS: Stable appearance of right hip prosthesis. SOFT TISSUE: Normal. IMPRESSION: Stable appearance of hip prosthesis. DATA REPOSITORY: RADIATION DOSE DELIVERED:
== END 2024-03-06 08:13 | disposition home or self-care (01) ==
LOC: DIORS 08:12
PROVIDERS: PCP Physician Assistant; Referring Provider Physician Assistant; Visit Provider Physician Assistant
DX: Z96.641 Presence of right artificial hip joint (principal); Z47.1 Aftercare following joint replacement surgery
CPT/HCPCS: 73502

== ENCOUNTER → 2024-06-23 00:59 | Outpatient (CLI) | payer BC, SELFPAY ==
--- NOTE | 2024-06-23 | DI.MAMMO_ITS ---
Exam(s) MAMMO SCREENING EXAM: MAMMO SCREENING CLINICAL HISTORY: SCREENING, Z12.31. TECHNIQUE: Bilateral full field digital CC and MLO mammographic images were obtained with 3D tomosyn thesis and utilizing computer aided detection (CAD). COMPARISON: Prior mammograms dating back to November 2021 were reviewed. There are no mammograms [place] or to that date FINDINGS: There has been no significant change in the appearance and distribution of the fibroglandular tissue. No new right breast findings. Asymmetric density inferiorly in the left breast on the MLO view is unchanged from 2021. There are no new spiculated masses nor new malignant appearing microcalcification groups. There is no significant architectural distortion nor skin thickening-retraction. IMPRESSION: No radiographic evidence of malignancy. Stable benign-appearing findings. BI-RADS Category 2 - Benign Findings Breast Density - Category B - Scattered areas of fibroglandular density Breast density Category C or D implies that the patient has dense breast tissue. Dense breast tissue can make it harder to find cancer on a mammogram. Dense breast tissue is also associated with an incr eased risk of breast cancer. This information about the result of the mammogram report was provided to the patient to raise their awareness. Use this report when you speak with the patient about their risks for breast cancer, which includes their family history. At that time, you may recommend additional screening tests (Ultrasoun d or MRI) as these tests may add significant information. A negative radiographic report should not delay biopsy if a dominant or clinically suspicious mass is present. Up to ten percent of cancers are not identified on mammography. A negative report may reinforce clinical impression. Adenosis and dense breasts may obscure an underlying neoplasm. False positive reports average 6 to 10%. Patient will receive a letter notifying them of these results.
== END ==
PROVIDERS: PCP Physician Assistant; Visit Provider Physician Assistant
DX: Z12.31 Encounter for screening mammogram for malignant neoplasm of breast (principal)
CPT/HCPCS: 77063; 77067

== ENCOUNTER 2024-11-23 15:12 | Outpatient (REF) | payer BC, SELFPAY ==
[2024-11-23 17:13] LABS: ALT 22 U/L (14-59); AST 20 U/L (15-37); Albumin 3.8 g/dL (3.4-5.0); Alkaline Phosphatase 88 U/L (46-116); Anion Gap 8.8 mmol/L (3-11); BUN 25 mg/dL (7-18); Bilirubin, Total 0.35 mg/dL (0.2-1.0); CO2 29.2 mmol/L (21.0-32.0); Calcium 8.9 mg/dL (8.5-10.1); Calculated LDL 146 mg/dL (<100); Chloride 107 mmol/L (98-107); Cholesterol 214 mg/dL (<200); Estimated GFR 67.36 (mL/min/1.73m2); Glucose 101 mg/dL (74-106); HDL Cholesterol 51 mg/dL (40-60); Potassium 4.6 mmol/L (3.5-5.1); Sodium 145 mmol/L (136-145); TSH 4.48 uIU/mL (0.36-3.74); Triglyceride 86 mg/dL (<150)
[2024-11-23 17:29] LABS: FREE T4 0.75 ng/dL (0.76-1.46)
== END 2024-11-23 15:13 | disposition home or self-care (01) ==
LOC: NCHCN 15:12
PROVIDERS: PCP Physician Assistant; Visit Provider Physician Assistant
DX: E78.5 Hyperlipidemia, unspecified (principal); E07.81 Sick-euthyroid syndrome
CPT/HCPCS: 80053; 80061; 84439; 84443

== ENCOUNTER 2024-12-17 13:34 | Outpatient (CLI) | payer BC, SELFPAY ==
--- NOTE | 2024-12-17 | DI.RAD_ITS ---
Exam(s) XR CHEST 2V PA LATERAL EXAM: XR CHEST 2V PA LATERAL CLINICAL HISTORY: ACUTE URI J06.9 TECHNIQUE: 2D digital imaging was performed of the chest. Two images were obtained. PA and lateral views were obtained. COMPARISON: CR,XR XR CHEST 2V PA LATERAL from 02/23/2024 FINDINGS: MEDIASTINUM: Normal. HEART: Normal. PULMONARY VASCULATURE: Normal. LUNGS: Clear. PLEURAL SPACE: No pleural effusion or pneumothorax. BONE:Within normal limits for the patient's age. OTHER FINDINGS:Normal. IMPRESSION: No acute pulmonary findings. DATA REPOSITORY: RADIATION DOSE DELIVERED:
== END 2024-12-17 13:54 ==
LOC: DI 13:34
PROVIDERS: PCP Physician Assistant; Visit Provider Physician Assistant Medical
DX: J06.9 Acute upper respiratory infection, unspecified (principal)
CPT/HCPCS: 71046

== ENCOUNTER 2025-06-02 13:52 | Outpatient (REF) | payer BC, SELFPAY ==
--- NOTE | 2025-06-02 12:15 | PAPFT_PTH ---
PATIENT: Maria Del Carmen Collins LOC: [facility] U#:[id number] AGE/SX: 55/F ROOM: RE06/02/[address]: Christoph Asif : 1970 BED: DIS: 06/02/2025 SPEC #: [id number] RECD: 06/02/25 18:04 STATUS: STEVE REQ #: [id number] GABBIE: 06/02/25 12:[address]: Christoph Asif DEPT: [facility] Cytology RECD BY: Brittni Cook ENTERED: 06/02/25 18:04 SP TYPE: PAPFT OTHR DR: Eduardo Scott Tissues: 1 - CX/ENDOCX FOR PAP SMEARS Procedures: PAP THIN PREP/[facility] Screening HPV DNA PROBE Comments: [id number] (HPV 16 & 18/45)
[2025-06-02 20:27] LABS: TSH (W/Ref FT4) 3.52 uIU/mL (0.36-3.74)
== END 2025-06-02 13:53 | disposition home or self-care (01) ==
LOC: NCHCN 13:52
PROVIDERS: PCP Physician Assistant; Visit Provider Student in an Organized Health Care Education/Training Program
DX: E03.9 Hypothyroidism, unspecified (principal); Z12.4 Encounter for screening for malignant neoplasm of cervix
CPT/HCPCS: 88142; 84443; 87624

== ENCOUNTER 2025-07-01 01:36 | Outpatient (CLI) | payer BC, SELFPAY ==
--- NOTE | 2025-07-01 | DI.MAMMO_ITS ---
Exam(s) MAMMO SCREENING EXAM: MAMMO SCREENING CLINICAL HISTORY: SCREENING, Z12.31 TECHNIQUE: Mammograms were interpreted according to the usual protocol including computer analysis with CAD system, tomosynthesis and C-view imaging. COMPARISON: 2021 through 2023 FINDINGS: The breasts are composed of mainly fatty density , Breast Density category A. No suspicious masses or suspicious microcalcifications are seen. No skin thickening or abnormal axillary lymph nodes are seen. There has been no significant change from prior exams. IMPRESSION: BI-RADS Category 1, Negative mammogram Yearly screening mammography is recommended. Breast Density- Category A - The breast are almost entirely fatty. Breast density Category C or D implies that the patient has dense breast tissue. Dense breast tissue can make it harder to find cancer on a mammogram. Dense breast tissue is also associated with an increased risk of breast cancer. This information about the result of the mammogram report was provided to the patient to raise their awareness. Use this report when you speak with the patient about their risks for breast cancer, which includes their family history. At that time, you may recommend additional screening tests (Ultrasound or MRI) as these tests may add significant information. A negative radiographic report should not delay biopsy if a dominant or clinically suspicious mass is present. Up to ten percent of cancers are not identified on mammography. A negative report may reinforce clinical impression. Adenosis and dense breasts may obscure an underlying neoplasm. False positive reports average 6 to 10%. Patient will receive a letter notifying them of these results.
== END 2025-07-01 01:56 ==
PROVIDERS: PCP Physician Assistant; Visit Provider Student in an Organized Health Care Education/Training Program
DX: Z12.31 Encounter for screening mammogram for malignant neoplasm of breast (principal); R92.313 Mammographic fatty tissue density, bilateral breasts
CPT/HCPCS: 77063; 77067